=== PATIENT | female | born 1975 | race Caucasian/White ===

== ENCOUNTER 2019-11-15 08:39 | Day surgery (SDC) | payer BC ==
--- NOTE | 2019-11-15 08:42 | RAD REPORT ---
EXAM DESCRIPTION: RAD - Chest Pa And Lat (2 Views) - 11/15/2019 8:34 am CLINICAL HISTORY: PRE OP Chest pain. COMPARISON: No comparisons FINDINGS: The lungs are clear. The heart is upper limit of normal in size. No displaced fractures. IMPRESSION: No acute or concerning finding suspected.
[2019-11-15 08:52] LABS: Absolute Lymphocytes (CBC) 1.8 K/uL (0.7-4.9); Lymphocytes % 41.6 % (15.3-44.8); MPV 8.8 fL (7.6-11.3); RBC Red Blood Cell Count 4.82 M/uL (3.86-4.86)
[2019-11-15 09:04] LABS: ALT/SGPT 61 U/L (12-78); AST/SGOT 29 U/L (15-37); Albumin 3.8 g/dL (3.4-5.0); Alkaline Phosphatase 93 U/L (45-117); Amylase 38 U/L (25-115); BUN Blood Urea Nitrogen 13 mg/dL (7-18); Bicarbonate 30 mmol/L (21-32); Bilirubin Direct 0.1 mg/dL (0-0.2); Bilirubin Total 0.5 mg/dL (0.2-1.0); Glucose Level 100 mg/dL (74-106); Lipase 110 U/L (73-393); Potassium 4.6 mmol/L (3.5-5.1); Protein, Total 7.3 g/dL (6.4-8.2); Sodium Level 143 mmol/L (136-145)
[2019-11-15] MEDS ORDERED: Ringers Lactate 1,000 ML IV ONE (09:13)
[2019-11-15] MEDS ORDERED: KETOROLAC 30 MG/ML INJ ONE (11:29)
[2019-11-15] MEDS ORDERED: FENTANYL CITR 100 MCG/2 ML ONE (11:29)
[2019-11-15] MEDS ORDERED: propofoL 200 MG/20 ML VIAL IV ONE (11:29)
[2019-11-15] MEDS ORDERED: dexAMETHasone 10 MG/ML VIAL ONE (11:29)
[2019-11-15] MEDS ORDERED: MIDAZOLAM HCL 2 MG/2 ML INJ ONE (11:29)
[2019-11-15] MEDS ORDERED: LIDOCAINE 2% MPF 5 ML VIAL ONE (11:29)
[2019-11-15] MEDS ORDERED: ONDANSETRON 4 MG/2 ML VIAL ONE (11:30)
[2019-11-15] MEDS ORDERED: ROCURONIUM 50 MG/5 ML VIAL IV ONE (11:30)
[2019-11-15] MEDS ORDERED: CEFOXITIN/SWI 1gm 1 GM/10 ML SYR ONE (11:46)
--- NOTE | 2019-11-15 12:14 | P.BOP ---
Preoperative diagnosis: acute cholecystitis, symptomatic cholelithiasis Postoperative diagnosis: same Primary procedure: Laparoscopic cholecystectomy Operations Chief: FABY ROSA (IMAGING ASSISTANT) Estimated blood loss: <10cc Specimen: gb Findings: as above Anesthesia: General Complications: None Transferred to: Recovery Room Condition: Good
[2019-11-15] MEDS ORDERED: GLYCOPYRROLATE 0.2 MG/ML SYR ONE (12:19)
[2019-11-15] MEDS: Ringers Lactate 1,000 ML IV ONE ×2 (12:20→12:27)
[2019-11-15] MEDS ORDERED: NEOSTIGMINE 1 MG/ML -5 ML ONE (12:36)
[2019-11-15] MEDS: MEPERIDINE HCL 25 MG/ML SYR ONE ×2 (12:47→12:53)
[2019-11-15] MEDS ORDERED: PROMETHAZINE INJ 25 MG/ML AMP ONE (12:51)
[2019-11-15] MEDS: HYDROMORPHONE HCL 1 MG/ML INJ ONE ×2 (12:57→13:07)
[2019-11-15] MEDS ORDERED: CODEINE 30MG/APAP 300MG TAB ONE (14:20)
[2019-11-15 15:43] VITALS: TEMP 97.8; O2SAT 96
[2019-11-15 15:45] VITALS: BP 107/66
--- NOTE | 2019-11-15 20:58 | EKG ---
Test Date: 2019-11-15 Test Time: 08:13:40 Unemployment Benefits Claims Taker: ABBY MEASUREMENT RESULTS: Intervals: Rate: 57 CT: 138 QRSD: 80 QT: 436 QTc: 424 Dupont: P: 65 CT: 138 QRS: 43 T: 67 INTERPRETIVE STATEMENTS: Sinus bradycardia with sinus arrhythmia Otherwise normal ECG No previous ECG available for comparison Electronically Signed On 11-15-19 20:56:59 CDT by Yunior Collins
--- NOTE | 2019-11-15 22:43 | OP ---
Date of Procedure: 11/15/2019 Surgeon: Primo Shaikh MD Preoperative Diagnosis: Acute cholecystitis, symptomatic cholelithiasis. Postoperative Diagnosis: Acute cholecystitis symptomatic cholelithiasis. Procedure: Laparoscopic appendectomy. Anesthesia: General plus local. Findings: Cholecystitis, symptomatic cholelithiasis. Indications: This is a case of a 44-year-old patient comes to us with recurrent epigastric right upp er quadrant pain radiating to the back, associated with nausea. Diagnosed with acute cholecystitis, symptomatic cholelithiasis. Fully explained the benefits, alternatives, and risks of laparoscopic po ssible open cholecystectomy, which include, but not limited to infection, bleeding, damage to adjacen t structures, anesthesia complication, choledocholithiasis, bile leak pancreatitis, [place], and even deat h. She also understands this may not relieve any symptoms. She might need more than one surgical in tervention. She understood, signed a consent. Description Of Procedure: Patient brought to the operating room, placed in supine position. Anesthe joselito was done without complication. Abdominal area was prepped and draped in usual sterile fashion. Marcaine 0.5% was injected for local anesthetic followed by sharp incision of the skin in the infraum bilical region. The incision was carried down to fascia which was opened under direct vision. Perit oneum was encountered, opened under direct vision. Vicryl #1 placed inside the fascia. Deyanira troca r was carefully introduced. Pneumoperitoneum was obtained. We directed our attention to the right u pper quadrant. We noticed the gallbladder to be all distended, so we have to put an Endo needle unde r direct visualization, aspirated the gallbladder under direct visualization, and removed the needle under direct visualization. This allowed me to put a grasper in the fundus of the gallbladder, anoth er grasper in the infundibulum, retracted the gallbladder in the inferolateral fashion exposing the t riangle of Calot and obtaining critical view of safety. Cystic duct and cystic artery were clearly i solated free circumferentially and a connection between those and the gallbladder was clearly identif ied. I proceeded to ligate those by using at least 3 clips proximal, 1 clip distal, ligation in midd le. Same was done with the cystic artery. No bile leak. No bleeding. The gallbladder was removed from liver using Bovie cauterizer and removed from abdominal cavity using an EndoCatch through the um bilical incision. The area was inspected once again. No bile leak. No bleeding. At that moment, I proceeded to remove the trocars under direct vision, deflated the pneumoperitoneum. Closed the fasc ia with #1 Vicryl. This patient has previous tummy tuck, so the incision was done vertical, but the skin incision was done to follow the incisions of the previous tummy tuck. We closed the subcutaneou s tissue with 3-0 chromic and approximate the skin in a subcuticular fashion with Steri-Strips on top . Sponge count and instrument counts correct. Patient tolerated the procedure well. Patient sent t o Recovery in stable condition. Disposition: Home. Activity: As tolerated. No heavy lifting. Plan: Follow up in my office in 1 week. Call for appointment at [phone]. Keep area dry for 48 diana rs, then may shower. Keep Steri-Strip intact. Medications: 1.Tylenol No. 3 q.4 hours p.r.n. pain. 2.Bactrim DS p.o. b.i.d. PAVAN/JEFFY Voice ID: [id number] Report ID: [id number]
== END 2019-11-15 15:30 | disposition home or self-care (01) ==
LOC: OR 08:39
PROVIDERS: ATTEND Surgery
PROC: 0FT44ZZ Resection of Gallbladder, Percutaneous Endoscopic Approach (ICD-10-PCS; principal; 2019-11-15 11:15)
DX: K80.12 Calculus of gallbladder with acute and chronic cholecystitis without obstruction (principal); E66.9 Obesity, unspecified; Z68.34 Body mass index [BMI] 34.0-34.9, adult; Z11.59 Encounter for screening for other viral diseases; Z82.49 Family history of ischemic heart disease and other diseases of the circulatory system; Z80.1 Family history of malignant neoplasm of trachea, bronchus and lung; Z83.6 Family history of other diseases of the respiratory system
CPT/HCPCS: 47562; 93005; 85025; 80048; 36415; 82150; 80076; 88304; 83690; 71046; U0002; J2704; J2550; J2250; J3010; J1100; J2175; J1170; J2710; J7120 ×2; J2405

== ENCOUNTER 2022-09-26 03:59 | Emergency (ER) | payer BC ==
--- OUTSIDE RECORDS SUMMARY | 2022-09-26 04:02 | XMS REPORT | Continuity of Care Document ---
:1975 Author Organization [facility] t Address [address]. [address] [place] [address] Care Team Providers Name Role Phone Samm HARVEY, Sabrina Reyez Primary Care Physician [phone] MAN MENDOZA Attending Clinician Unavailable LAB53 Attending Clinician Unavailable ONLY, CK HEM/ONC NURSE Attending Clinician Unavailable VANIA ALVAREZ Attending Clinician Unavailable MD CORTES Attending Clinician Unavailable Zbigniew Klein Attending Clinician [phone] Godfrey Attending Clinician Unavailable LAB90 Attending Clinician Unavailable Man Mojica Attending Clinician Sabrina Quijano MD Attending Clinician [phone] Orlando Aguiar MD Attending Clinician ORLANDO AGUIAR Attending Clinician Unavailable Doctor Unassigned, [place] Attending Clinician Unavailable Godfrey Admitting Clinician Unavailable Payers Payer Name Policy Type Policy Number Effective Date Expiration Date S ourtremayne BCBS 2 [id number] 2018 00:00:00 [place] [id number] 2017 00:00:00 [place] Problems Condition Condition Condition Status Onset Resolution Last Treating Co mments Source Name Details Category Date Date Treatment Clinician Date Prediabete Prediabete Disease Active Romi nunez 10-10 Seybold 00:00: - 00 Externa l Encounter Encounter Disease Active Overview: Univers for for 09-24 ICD10 ity of routine routine 00:00: Diagnosis [place] gynecologi gynecologi 00 Term Me dical linh 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 Social History Social Habit Start Date Stop Date Quantity Comments Source Exposure to Not sure Anna robin SARS-CoV-2 (event) Alcohol intake 2022-04-03 2022-04-03 0 /d Anna Donaldson bold - 00:00:00 00:00:00 External Tobacco use and 2014-09-24 2014-09-24 Never used [facility] exposure 00:00:00 00:00:00 [facility] Branch Alcohol Comment 2014-09-24 2014-09-24 socially [facility] 00:00:00 00:00:00 [facility] Sex Ass[birth year] Anna Huntley ybold - 00:00:00 00:00:00 External Smoking Status Start Date Stop Date Source Never smoked tobacco Anna mcmullen - External Medications Ordered Filled Start Stop Current Ordering Indication Dosage Frequency Signature Comments Components Source Medication Medication Date Date Medication? Clinician (SIG) Name Name Cholecalcif 2021-05 Yes Vitamin D3 Anna sakina 1-18 Seybold (Vitamin 15:56: - D3) 1.25 MG 58 Externa (43547 UT) l oral Capsule methylPREDN 2021-05 Yes [id number] 1{melly} Take 1 melly Anna ISolone 4 1-18 by mouth Seybol d MG oral 00:00: See Admin - Tablet 00 Instructio Externa Therapy ns Use as l Pack directed Azithromyci 2021-05- No [id number] Take 2 Anna n 250 MG 1-18 11-24 tablets by Seyb old oral Tablet 00:00: 05:59 mouth on - 00 :00 day 1 then Externa 1 tablet l by mouth daily for 4 days thereafter . Cholecalcif 2021-05 Yes Vitamin D3 Anna sakina 0-18 Seybold (Vitamin 08:04: - D3) 1.25 MG 36 Externa (60063 UT) l oral Capsule OZEMPIC 2021-05 Yes [id number] .5mg Inject 0.5 Anna (0.25 or 0-18 mg into Seybold 0.5 00:00: the skin - mg/dose) 2 00 once a Externa mg/1.5 mL week l SQ Solution Pen-Injecto r Phentermine 2021-05 Yes [id number] 37.5mg Take 1 Anna HCl 37.5 MG 0-18 tablet Seybol d oral Tablet 00:00: (37.5 mg - 00 total) by Externa mouth l every morning (before breakfast) OZEMPIC 2021-05 Yes [id number] .5mg Inject 0.5 Anna (0.25 or 0-18 mg into Seybold 0.5 00:00: the skin - mg/dose) 2 00 once a Externa mg/1.5 mL week l SQ Solution Pen-Injecto r Phentermine 2021-05 Yes [id number] 37.5mg Take 1 Anna HCl 37.5 MG 0-18 tablet Seybol d oral Tablet 00:00: (37.5 mg - 00 total) by Externa mouth l every morning (before breakfast) Bupropion Yes [id number] 150mg Take 1 K elsey HCL XL 150 5-25 tablet Seybold MG OR TB24 00:00: (150 mg 00 total) by mouth daily Cyclobenzap 2020-05 Yes [id number] 10mg Q.[id number] Take 1 Anna rine HCl 10 0-27 [id number] tablet (10 Seybold MG oral 00:00: 3D mg total) Tablet 00 by mouth 3 times daily as needed for muscle spasms Etodolac 2020-05 Yes [id number] 400mg Take 1 K elsey 400 MG oral 0-27 tablet Seybol d Tablet 00:00: (400 mg 00 total) by mouth 2 times daily Cyclobenzap 2020-05 Yes [id number] 10mg Q.[id number] Take 1 Anna ortega HCl 10 0-27 [id number] tablet (10 Seybold MG oral 00:00: 3D mg total) Tablet 00 by mouth 3 times daily as needed for muscle spasms Etodolac 2020-05 Yes [id number] 400mg Take 1 K elsey 400 MG oral 0-27 tablet Seybol d Tablet 00:00: (400 mg 00 total) by mouth 2 times daily Vitamin D3 Vitamin D3 No Vitamin D3 [facility] Wellbutrin Wellbutrin No Wellbutrin [facility] bupropion bupropion No bupropion [facility] HCl XL 150 HCl XL 150 HCl XL 150 Medical mg 24 hr mg 24 hr mg 24 hr tablet, tablet, tablet, extended extended extended release release release TAKE ONE TAKE ONE TAKE ONE (1) (1) (1) TABLET(S) TABLET(S) TABLET(S) BY MOUTH BY MOUTH BY MOUTH DAILY. DAILY. DAILY. estradiol-n estradiol-n No 1 Q1D estradiol- [facility] orethindron orethindron [facility]r [facility] e acet 0.5 e acet 0.5 one acet mg-0.1 mg mg-0.1 mg 0.5 mg-0.1 tablet Take tablet Take mg tablet 1 tablet 1 tablet Take 1 every day every day tablet by oral by oral every day route. route. by oral route. Vitamin D3 Vitamin D3 No Vitamin D3 [facility] No known No Univers medications [facility] No known No Univers medications [facility] Immunizations Ordered Filled Immunization Date Status Comments [facility] e Immunization Name Name Covid-19 Vaccine 2020-09-09 Completed Anna alejo (Moderna), 00:00:00 Mrna-lnp, Rob Protein, Pf, 100 Mcg/0.5ml,IM Covid-19 Vaccine 2020-09-09 Completed Anna alejo Moderna (Spikevax), 00:00:00 Mrna-lnp, Rob Protein, Pf Covid-19 Vaccine 2020-09-09 Completed Anna alejo - Moderna (Spikevax), 00:00:00 Exter nal Mrna-lnp, Rob Protein, Pf Covid-19 Vaccine 2020-09-09 Completed Anna alejo - Moderna (Spikevax), 00:00:00 Exter nal Mrna-lnp, Rob Protein, Pf Tdap- (Boostrix, 2018-12-27 Completed Anna alejo Adacel) 00:00:00 Tdap- (Boostrix, 2018-12-27 Completed Anna alejo - Adacel) 00:00:00 External Tdap- (Boostrix, 2018-12-27 Completed Anna alejo - Adacel) 00:00:00 External Td,absorbed PF 2007-05-17 Completed Anna bermudez KSC,Admin,unspecifi 00:00:00 ed Td,absorbed PF 2007-05-17 Completed Anna PUGHC,Admin,unspecifi 00:00:00 ed Td,absorbed PF 2007-05-17 Completed Anna bermudez - KSC,Admin,unspecifi 00:00:00 Exter nal ed Td,absorbed 2007-05-17 Completed Anna bermudez - KSC,Admin,unspecifi 00:00:00 Exter nal ed Td 2007-05-17 Completed [facility] 00:00:00 [facility] Td 2007-05-17 Completed [facility] 00:00:00 [facility] Vital Signs Vital Name Observation Time Observation Value Comments Source Systolic blood 2022-04-03 21:53:00 102 mm[Hg] Anna Mcneill - pressure External Diastolic blood 2022-04-03 21:53:00 62 mm[Hg] Rosa Mcneill - pressure External Heart rate 2022-04-03 21:53:00 89 /min Anna alejo - External Body temperature 2022-04-03 21:53:00 35.83 Kaye Brittany Mcneill - External Respiratory rate 2022-04-03 21:53:00 14 /min Brittany Mcneill - External Body height 2022-04-03 21:53:00 175.3 cm Anna alejo - External Body weight 2022-04-03 21:53:00 98.431 kg Anna alejo - External BMI 2022-04-03 21:53:00 32.05 kg/m2 Anna alejo - External BP Diastolic 2021-12-31 00:00:00 72 mm[Hg] [facility] Height 2021-12-31 00:00:00 69 [in_i] [facility] BMI (Body Mass Index) 2021-12-31 00:00:00 33.8 kg/m2 [facility] BP Systolic 2021-12-31 00:00:00 116 mm[Hg] [facility] Body Weight 2021-12-31 00:00:00 229 [lb_av] [facility] BP Diastolic 2021-11-05 00:00:00 83 mm[Hg] [facility] Height 2021-11-05 00:00:00 69 [in_i] [facility] BMI (Body Mass Index) 2021-11-05 00:00:00 32.6 kg/m2 [facility] BP Systolic 2021-11-05 00:00:00 126 mm[Hg] [facility] Body Weight 2021-11-05 00:00:00 221 [lb_av] Charlie Olsen edical Systolic blood 2021-10-08 14:09:00 113 mm[Hg] Anna Seybold pressure Diastolic blood 2021-10-08 14:09:00 83 mm[Hg] Kelse y Seybold pressure Heart rate 2021-10-08 14:09:00 65 /min Annaradha alejo Body temperature 2021-10-08 14:09:00 36.44 Kaye Brittany ey Seybold Respiratory rate 2021-10-08 14:09:00 14 /min Brittany ey Seybold Body height 2021-10-08 14:09:00 175.3 cm Annaradha smithbold Body weight 2021-10-08 14:09:00 103.874 kg Annaradha smithbold BMI 2021-10-08 14:09:00 33.82 kg/m2 Annaradha smithboant Oxygen saturation in 2021-10-08 14:09:00 99 /min Anna Mcneill Arterial blood by Pulse oximetry Systolic blood 2021-03-12 18:04:00 119 mm[Hg] Anna Seybold pressure Diastolic blood 2021-03-12 18:04:00 80 mm[Hg] Kelse y Seybold pressure Heart rate 2021-03-12 18:04:00 68 /min Anna alejo Body temperature 2021-03-12 18:04:00 36.56 Kaye Brittany Mcneill Respiratory rate 2021-03-12 18:04:00 14 /min Brittany Mcneill Body height 2021-03-12 18:04:00 175.3 cm Anna alejo Body weight 2021-03-12 18:04:00 102.967 kg Anna alejo BMI 2021-03-12 18:04:00 33.52 kg/m2 Anna alejo Procedures Procedure Date / Time Performing Clinician Source Performed MAMMO, screening, 2021-12-31 00:00:00 [facility] bilateral US ABDOMEN COMPLETE 2020-09-11 14:36:27 Orlando Aguiar [facility] ASSIGNMENT OF BENEFITS 2020-09-11 13:57:19 Doctor Unassigned, Un [facility] [facility] Cholecystectomy 2019-05-17 00:00:00 [facility] (Gallbladder) Inguinal Hernia 2007-05-17 00:00:00 [facility] Orthopedic - Arthroscopic 2004-05-17 00:00:00 [facility] Abdominoplasty 2004-05-17 00:00:00 [facility] Plan of Care Planned Activity Planned Date Details Comments Source Diagnostic Test Pending 2021-12-31 [place] IgE Ab [facility] 00:00:00 [Units/volume] in Serum [code = 6195-2] Future Appointment 2022-12-31 Anne Arndt [facility] 00:00:00 [place] [address] Encounters Start End Encounter Admission Attending Care Care Encounter Source Date/Time Date/Time Type Type Clinicians Facility Department ID 2022-04-13 Outpatient [facility] [id number] Common 08:06:01 [facility] 2022-09-10 2022-09-10 Outpatient ANNA MENDOZA [id number] Anna 00:00:00 00:00:00 MAN robin 2022-08-07 2022-08-07 Outpatient ANNA MENDOZA [id number] Anna 00:00:00 00:00:00 MAN Seybol d 2022-06-08 2022-06-08 Outpatient KELLY ANNA BAUM [id number] Anna 00:00:00 00:00:00 MAN Seybol d 2022-05-02 2022-05-02 Outpatient KELLY ANNA BAUM [id number] Anna 00:00:00 00:00:00 MAN Seybol d 2022-04-14 2022-04-14 Outpatient LAB53 ANNA BAUM [id number] Anna 09:30:00 09:30:00 Seybol d 2022-04-14 2022-04-14 Outpatient ONLY, CK ANNA BAUM [id number] Anna 09:00:00 09:00:00 Seybol d 2022-04-14 2022-04-14 Outpatient LAB53 ANNA BAUM [id number] Anna 08:35:00 08:35:00 Seybol d 2022-04-03 2022-04-03 Outpatient KELLY, ANNA BAUM [id number] Anna 16:30:00 16:30:00 MAN Seybol d 2022-04-03 2022-04-03 Outpatient ANNA MENDOZA [id number] Anna 08:00:00 08:00:00 MAN Seybol d 2022-03-25 2022-03-25 Outpatient ANNA ALVAREZ [id number] Anna 15:30:00 15:30:00 KUBRAT Seybol d 2022-03-23 2022-03-23 Outpatient MANJINDER BAUM [id number] Anna 00:00:00 00:00:00 MD DEV Seybol d 2022-03-23 2022-03-23 Outpatient MANJINDER BAUM [id number] Anna 00:00:00 00:00:00 MD DVE Seybol d 2022-03-03 2022-03-03 Outpatient ANNA MENDOZA [id number] Anna 08:00:00 08:00:00 MAN Seybol d 2022-02-02 2022-02-02 Outpatient ANNA MENDOZA [id number] Anna 15:00:00 15:00:00 MAN Seybol d 2021-12-31 2021-12-31 Outpatient Ernie, PRIV PRIV [id number] 00:00:00 00:00:00 Zbigniew [id number] 2021-12-31 2021-12-31 Zbigniew [facility] 00:[facility]:00 [facility] RENE Klein MD: [address], [place] [address] , Ph. 2021-12-25 2021-12-25 Outpatient GC_SWHAOMC_ PRIV PRIV [id number] [facility] 00:00:00 00:00:00 Rafat [id number] Medic al 2021-11-12 2021-11-12 Outpatient GC_SWHAOMC_ PRIV PRIV [id number] [facility] 12:07:00 12:07:00 Rafat [id number] Medic al 2021-11-06 2021-11-06 Outpatient GC_SWHAOMC_ PRIV PRIV [id number] [facility] 10:36:00 10:36:00 Rafat [id number] Medic al 2021-11-05 2021-11-05 Outpatient GC_SWHAOMC_ PRIV PRIV [id number] [facility] 10:04:00 10:04:00 Rafat [id number] Medic al 2021-11-05 2021-11-05 Outpatient ANNA MENDOZA [id number] Anna 00:00:00 00:00:00 MAN Seybol d 2021-11-05 2021-11-05 Outpatient Ernie, PRIV PRIV [id number] 00:00:00 00:00:00 Zbigniew [id number] 2021-11-05 2021-11-05 Zbigniew [facility] 00:00:00 00:00:00 [facility] RENE Collado MD: [address], [place] [address] , Ph. 2021-11-04 2021-11-04 Outpatient GC_SWHAOMC_ PRIV PRIV [id number] [facility] 11:23:00 11:23:00 Rafat [id number] Medic al 2021-10-27 2021-10-27 Outpatient GC_SWHAOMC_ PRIV PRIV [id number] [facility] 10:03:00 10:03:00 Rafat [id number] Medic al 2021-10-10 2021-10-10 Outpatient ANNA MENDOZA [id number] Anna 00:00:00 00:00:00 MAN Seybol d 2021-10-08 2021-10-08 Outpatient LAB90 ANNA BAUM [id number] Anna 09:45:00 09:45:00 Seybol d 2021-10-08 2021-10-08 Office Aman Mendoza [id number] Anna 09:00:00 09:30:00 Visit Man Fidencio [id number] Se lia [id number] 2021-03-12 2021-03-12 Office Aman Quijano [id number] Anna 12:57:35 13:27:35 Visit Sabrina Fidencio [id number] Se chilangoold Somogyi [id number] 2020-09-11 2020-09-11 [facility] [id number] Univers 08:58:01 23:59:00 Encounter Orlando [id number] [id number] [facility] [id number] [place] [id number] Branch 2020-09-11 2020-09-11 [facility] [id number] Univers 00:00:00 00:00:00 ORLANDO carrasco [facility] 2020-09-11 2020-09-11 Orders Doctor VENTURA [id number] Univers 00:00:00 00:00:00 Only Unassigned, PETRONA [id number] ity of [place] [facility] [id number] Hugh as [id number] [facility] 009 Branch Results Test Description Test Time Test Comments Results Result [facility] e Comments US ABDOMEN 2020-08-16 HISTORY: [facility] 8 Hepatomegaly with [place] [facility]ical 14:39:33 NOS steatosis. Branch TECHNIQUE: Upper abdominal organs were evaluated in multiple planes withthe patient in multiple different positions, without and with colorimaging. FINDINGS: Liver is enlarged, 20.1 cm, spleen is 11.6 x 4.2 cm, right kidneyis 11.6 x 4.1 x 4.8 cm and left kidney is 10.3 x 5.0 x 4.9 cm in size. Milddiffuse increased echotexture of the liver parenchyma noted without anyfocal liver lesions visualized. Cortex of both kidneys range between 11 mmand 15 mm. No hydronephrosis, free fluid in the upper abdomen or aorticaneurysm detected. Visualized portions of the pancreas appear normal.Hepatic and portal venous system appear patent, with hepatopetal portalflow noted. Gallbladder has been removed. Common hepatic duct is 4.5 mm. CONCLUSIONS:1. Hepatomegaly with diffuse hepatic steatosis.2. S/P cholecystectomy. [facility], Radiant Results Inft User - 09/11/2020 9:40 AM CDTHISTORY: Hepatomegaly with NOS steatosis.TECHNIQUE : Upper abdominal organs were evaluated in multiple planes withthe patient in multiple different positions, without and with colorimaging.FINDIN GS: Liver is enlarged, 20.1 cm, spleen is 11.6 x 4.2 cm, right kidneyis 11.6 x 4.1 x 4.8 cm and left kidney is 10.3 x 5.0 x 4.9 cm in size. Milddiffuse increased echotexture of the liver parenchyma noted without anyfocal liver lesions visualized. Cortex of both kidneys range between 11 mmand 15 mm. No hydronephrosis, free fluid in the upper abdomen or aorticaneurysm detected. Visualized portions of the pancreas appear normal.Hepatic and portal venous system appear patent, with hepatopetal portalflow noted.Gallbladder has been removed. Common hepatic duct is 4.5 mm.CONCLUSIONS:1. Hepatomegaly with diffuse hepatic steatosis.2. S/P cholecystectomy.
[2022-09-26 04:55] LABS: Specific Gravity 1.011 (1.005-1.030); Urine Bacteria <20 /HPF (<20); Urine Bilirubin NEGATIVE (Negative); Urine Blood 3+ (Negative); Urine Clarity Turbid (Clear); Urine Color Light-Yellow (Yellow); Urine Glucose NEGATIVE (Negative); Urine Mucus Slight /HPF (None Seen); Urine Protein NEGATIVE (Negative); Urine RBC 21-50 /HPF (None Seen); Urine Urobilinogen Normal (Normal)
--- NOTE | 2022-09-26 05:26 | ER ---
Nurse's Notes [facility] Name: Adriana Bunn Age: 47 yrs Sex: Female : 1975 Arrival Date: 09/26/2022 Time: 03:59 Bed 13 Private MD: Diagnosis: UTI/ Urinary tract infection, site not specified;Acute cystitis Presentation: 09/26 04:11 Chief complaint: Patient states: burning with urination, urgency, frequency, with pf1 suprapubic pain of 7,onset 1 hour ago. Coronavirus screen: Vaccine status: Patient reports receiving the 2nd dose of the covid vaccine. Moderna Client denies travel out of the [place] in the last 14 days. At this time, the client does not indicate any symptoms associated with coronavirus-19. Ebola Screen: Patient negative for fever greater than or equal to 101.5 degrees Fahrenheit, and additional compatible Ebola Virus Disease symptoms. Initial Sepsis Screen: Does the patient meet any 2 criteria? No. Patient's initial sepsis screen is negative. Does the patient have a suspected source of infection? No. Patient's initial sepsis screen is negative. Risk Assessment: Do you want to hurt yourself or someone else? Patient reports no desire to harm self or others. Onset of symptoms was September 26, 2022. 04:11 Method Of Arrival: Ambulatory pf1 04:11 Acuity: NAVYA 4 pf1 Triage Assessment: 04:21 General: Appears in no apparent distress. uncomfortable, Behavior is calm, cooperative, vc1 appropriate for age. Pain: Complains of pain in meatus and suprapubic area Pain does not radiate. EENT: No deficits noted. No signs and/or symptoms were reported regarding the EENT system. Neuro: Level of Consciousness is awake, alert, obeys commands, Oriented to person, place, time, situation, Appropriate for age. Cardiovascular: No deficits noted. Respiratory: Airway is patent Respiratory effort is even, unlabored, Respiratory pattern is regular, symmetrical. GI: No deficits noted. No signs and/or symptoms were reported involving the gastrointestinal system. : Reports burning with urination, pain in suprapubic area with urination, urgency, urinary frequency. Derm: No deficits noted. No signs and/or symptoms reported regarding the dermatologic system. Musculoskeletal: No deficits noted. No signs and/or symptoms reported regarding the musculoskeletal system. 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 It has been more than one year since last vaccine. - Family history:: not pertinent. - Social history:: Smoking status: Patient denies any tobacco usage or history of. Patient uses alcohol, but reports only rare drinking. Patient/guardian denies using street drugs. - Hospitalizations: : No recent hospitalization is reported. Screenin:18 [facility] ED Fall Risk Assessment (Adult) History of falling in the last 3 months, pf1 including since admission No falls in past 3 months (0 pts) Confusion or Disorientation No (0 pts) Intoxicated or Sedated No (0 pts) Impaired Gait No (0 pts) Mobility Assist Device Used No (0 pt) Altered Elimination No (0 pt) Score/Fall Risk Level 0 - 2 = Low Risk Oriented to surroundings, Maintained a safe environment, Educated pt \T\ family on fall prevention, incl call for assistance when getting out of bed, Assessed \T\ reinforced patient's understanding of fall precautions, Provided non-skid footwear, Hourly rounding (assess needs \T\ fall precautionary measures) done, Used ambulatory aids as needed (educated on \T\ assisted with), Used gait belt as appropriate. Abuse screen: Denies threats or abuse. Nutritional screening: No deficits noted. Tuberculosis screening: No symptoms or risk factors identified. Assessment: 05:51 Reassessment: No changes from previously documented assessment. Patient and/or family vc1 updated on plan of care and expected duration. Pain level reassessed. Patient is alert, oriented x 3, equal unlabored respirations, skin warm/dry/pink. Vital Signs: 04:11 BP 114 / 74; Pulse 79; Resp 18; Temp 97.3; Pulse Ox 100% on R/A; Weight 82.55 kg; pf1 Height 5 ft. 9 in. ; Pain 7/10; 04:11 Body Mass Index 26.88 (82.55 kg, 175.26 cm) pf1 04:11 Pain Scale: Adult pf1 ED Course: 04:02 Patient arrived in ED. [id number] 04:06 Edmund Banks MD is Attending Physician. rn 04:13 Triage completed. pf1 04:19 Patient has correct armband on for positive identification. Bed in low position. Call pf1 light in reach. 04:19 Urinalysis w/ reflexes Sent. pf1 04:20 Teodora Mcclain, RN is Primary Nurse. vc1 04:22 Arm band placed on right wrist. vc1 05:51 No provider procedures requiring assistance completed. Patient did not have IV access vc1 during this emergency room visit. Administered Medications: 05:35 Drug: Rocephin (cefTRIAXone) IM 1 grams Route: IM; Site: right ventrogluteal; vc1 Medication: 04:22 VIS not applicable for this client. vc1 Outcome: 05:25 Discharge ordered by . rn 05:51 Discharged to home ambulatory, with significant other. vc1 05:51 Condition: good 05:51 Discharge instructions given to patient, Instructed on discharge instructions, follow up and referral plans. medication usage, Demonstrated understanding of instructions, follow-up care, medications, Prescriptions given X 2. 05:51 Patient left the ED. vc1 Signatures: Edmund Banks MD MD rn Jeffries, Jennifer j6 Teodora Mcclain RN RN vc1 Mila medina RN RN pf1
--- NOTE | 2022-09-26 05:26 | EDPHYS ---
Physician Documentation [facility] Name: Adriana Bunn Age: 47 yrs Sex: Female : 1975 Arrival Date: 09/26/2022 Time: 03:59 Bed 13 Private MD: ED Physician Edmund Banks HPI: 09/26 04:12 This 47 yrs old Female presents to ER via Unassigned with complaints of Pelvic Pain, rn Pain With Urination. 04:12 The patient presents with urinary symptoms, dysuria, frequency, urgency. Onset: The rn symptoms/episode began/occurred this morning. Modifying factors: The symptoms are alleviated by nothing, the symptoms are aggravated by urinating. Associated signs and symptoms: Pertinent positives: dysuria, Pertinent negatives: fever, hematuria, vaginal bleeding, vomiting. Severity of symptoms: At their worst the symptoms were moderate, in the emergency department the symptoms are unchanged. The patient has experienced a previous episode. The patient has not recently seen a physician. 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 It has been more than one year since last vaccine. - Family history:: not pertinent. - Social history:: Smoking status: Patient denies any tobacco usage or history of. Patient uses alcohol, but reports only rare drinking. Patient/guardian denies using street drugs. - Hospitalizations: : No recent hospitalization is reported. ROS: 04:12 Constitutional: Negative for fever, chills, and weight loss, Cardiovascular: Negative rn for chest pain, palpitations, and edema, Respiratory: Negative for shortness of breath, cough, wheezing, and pleuritic chest pain, Abdomen/GI: Negative for abdominal pain, nausea, vomiting, diarrhea, and constipation, Back: Negative for injury and pain, : + dysuria, + increased frequency or urgency MS/Extremity: Negative for injury and deformity, Skin: Negative for injury, rash, and discoloration, Neuro: Negative for headache, weakness, numbness, tingling, and seizure. Exam: 04:12 Constitutional: This is a well developed, well nourished patient who is awake, alert, rn and in no acute distress. Cardiovascular: Regular rate and rhythm. No pulse deficits. Abdomen/GI: soft, non-tender Back: No costovertebral tenderness. Vital Signs: 04:11 BP 114 / 74; Pulse 79; Resp 18; Temp 97.3; Pulse Ox 100% on R/A; Weight 82.55 kg; pf1 Height 5 ft. 9 in. ; Pain 7/10; 04:11 Body Mass Index 26.88 (82.55 kg, 175.26 cm) pf1 04:11 Pain Scale: Adult pf1 MDM: 04:06 Patient medically screened. rn 05:25 Differential diagnosis: urinary tract infection, cystitis. Data reviewed: vital signs, rn nurses notes, lab test result(s), and as a result, I will discharge patient. Counseling: I had a detailed discussion with the patient and/or guardian regarding: the historical points, exam findings, and any diagnostic results supporting the discharge/admit diagnosis, lab results, the need for outpatient follow up, to return to the emergency department if symptoms worsen or persist or if there are any questions or concerns that arise at home. Special discussion: I discussed with the patient/guardian in detail that at this point there is no indication for admission to the hospital. It is understood, however, that if the symptoms persist or worsen the patient needs to return immediately for re-evaluation. Based on the history and exam findings, there is no indication for further emergent testing or inpatient evaluation. I discussed with the patient/guardian the need to see the primary care provider for further evaluation of the symptoms. 09/26 04:11 Order name: Urinalysis w/ reflexes; Complete Time: 05:20 rn 09/26 05:04 Order name: Urine Culture EDMS Administered Medications: 05:35 Drug: Rocephin (cefTRIAXone) IM 1 grams Route: IM; Site: right ventrogluteal; vc1 Disposition Summary: 09/26/22 05:25 Discharge Ordered Location: Home rn Problem: new rn Symptoms: have improved rn Condition: Stable rn Diagnosis - UTI/ Urinary tract infection, site not specified rn - Acute cystitis rn Followup: rn - With: Private Physician - When: As needed - Reason: Recheck today's complaints, Re-evaluation by your physician Discharge Instructions: - Discharge Summary Sheet rn - Urinary Tract Infection, Adult rn Forms: - Medication Reconciliation Form rn - Thank You Letter rn - Antibiotic project management intern - Prescription Opioid Use rn Prescriptions: - Pyridium 200 mg Oral Tablet - take 1 tablet by ORAL route every 8 hours for 3 days; 9 tablet; Refills: 0, rn Product Selection Permitted - cefpodoxime 100 mg Oral Tablet - take 2 tablets by ORAL route every 12 hours for 10 days take with food; 40 rn tablet; Refills: 0, Product Selection Permitted Signatures: Dispatcher [employer] EDEdmund Sales MD MD rn Calcote, Vanessa, RN RN vc1 Mila medina, RN RN pf1
[2022-09-26] MEDS ORDERED: LIDOCAINE 1% MPF 2 ML AMPULE ONE (05:35)
[2022-09-26] MEDS ORDERED: CEFTRIAXONE 1000 MG/VIAL ONE (05:35)
[2022-09-26 06:01] VITALS: BP 114/74; TEMP 97.3; O2SAT 100
== END 2022-09-26 05:51 | disposition home or self-care (01) ==
LOC: ER 03:59
DX: N30.00 Acute cystitis without hematuria (principal); R73.03 Prediabetes
CPT/HCPCS: 87088; 81001; 87086; 96372; 99284; J0696

== ENCOUNTER 2023-12-26 20:44 | Emergency (ER) | payer BC ==
[2023-12-26 22:02] LABS: Specific Gravity 1.005 (1.005-1.030); Sqamous Epithelial <5 /HPF (None Seen); Urine Bacteria None Seen /HPF (<20); Urine Bilirubin NEGATIVE (Negative); Urine Blood Negative (Negative); Urine Clarity Clear (Clear); Urine Color Colorless (Yellow); Urine Culture Reflex Order NOT NEEDED; Urine Glucose NEGATIVE (Negative); Urine Ketones NEGATIVE (Negative); Urine Microscopic Reflex YN ORDER UMIC; Urine Nitrite NEGATIVE (Negative); Urine Protein NEGATIVE (Negative); Urine RBC <5 /HPF (None Seen); Urine Urobilinogen Normal (Normal); Urine WBC <5 /HPF (<5)
--- NOTE | 2023-12-26 22:07 | EDPHYS ---
Physician Documentation [facility] Name: Adriana Bunn Age: 48 yrs Sex: Female : 1975 Arrival Date: 12/26/2023 Time: 20:44 Bed 18 Private MD: ED Physician Sal Figueroa HPI: 12/25 22:35 This 48 yrs old Female presents to ER via Ambulatory with complaints of vaginal problem.kb 22:35 Pt is a 48 year old female who presents for bulge in vagina that she felt this evening. kb states she lifts heavy objects at work and has noticed pressure in vaginal area and urge to urinate when lifting. Denies pain, urinary symptoms, fever. . 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 - Infectious Disease History:: Denies. - Social history:: Smoking status: Patient denies any tobacco usage or history of. ROS: 22:35 Constitutional: As per HPI kb Exam: 22:35 Constitutional: This is a well developed, well nourished patient who is awake, alert, kb and in no acute distress. Head/Face: Normocephalic, atraumatic. ENT: Moist Mucous membranes Cardiovascular: Regular rate Respiratory: Respirations even and unlabored. No increased work of breathing. Talking in full sentences Abdomen/GI: Soft, non-tender. No distention Back: No spinal tenderness. No costovertebral tenderness. Full range of motion. Skin: Warm, dry with normal turgor. Normal color. MS/ Extremity: Pulses equal, no cyanosis. Neurovascular intact. Full, normal range of motion. Neuro: Awake and alert, GCS 15, oriented to person, place, time, and situation. Moves all extremities. Normal gait. 22:37 : Pelvic Exam: External exam: is normal, kb Vital Signs: 20:50 BP 118 / 64; Pulse 73; Resp 17 S; Temp 98.1(O); Pulse Ox 100% on R/A; Weight 90.72 kg; ha1 Height 5 ft. 9 in. ; 22:21 BP 100 / 60; Pulse 68; Resp 18; Temp 98.4; Pulse Ox 98% on R/A; me1 20:50 Body Mass Index 29.53 (90.72 kg, 175.26 cm) ha1 MDM: 20:50 Patient medically screened. kb 22:36 Differential diagnosis: UTI, bartholin cyst, abscess, uterine prolapse. Data reviewed: kb vital signs, nurses notes. Test considered but Not performed: CT: ct abd considered but pt has no pain, tenderness, fever. Historians other than the Patient: Spouse/Significant Other: . Counseling: I had a detailed discussion with the patient and/or guardian regarding the historical points, exam findings, and any diagnostic results supporting the discharge/admit diagnosis, lab results, the need for outpatient follow up, an OB/Gyne specialist, to return to the emergency department if symptoms worsen or persist or if there are any questions or concerns that arise at home. 12/25 21:08 Order name: Urinalysis w/ reflexes; Complete Time: 22:05 kb Administered Medications: No medications were administered Disposition: 23:05 I was immediately available on-site in the Emergency Department for consultation in the ms3 care of the patient. Disposition Summary: 12/26/23 22:06 Discharge Ordered Notes: Location: Home kb Condition: Stable kb Diagnosis - Female genital prolapse, unspecified kb Followup: kb - With: Emergency Department - When: As needed - Reason: Worsening of condition Followup: kb - With: Private Physician - When: 2 - 3 days - Reason: Recheck today's complaints, Continuance of care, Re-evaluation by your physician Discharge Instructions: - Discharge Summary Sheet kb - Pelvic Organ Prolapse kb Forms: - Medication Reconciliation Form kb - Antibiotic Education kb - Prescription Opioid Use kb - Patient Portal Instructions kb - Leadership Thank You Letter kb Signatures: Dispatcher [employer] Vika Basilio, CECILLE WAGONER-Sal Beck DO DO ms3 Leesa Alex, RN RN ha1
--- NOTE | 2023-12-26 22:07 | ER ---
Nurse's Notes [facility] Name: Adriana Bunn Age: 48 yrs Sex: Female : 1975 Arrival Date: 12/26/2023 Time: 20:44 Bed 18 Private MD: Diagnosis: Female genital prolapse, unspecified Presentation: 12/25 20:50 Chief complaint: Patient states: I feel like something is hanging out of my vagina. I me1 am wondering if it is uterine prolapse. 20:50 Coronavirus screen: Vaccine status: Patient reports receiving the 2nd dose of the covid ha1 vaccine. Ebola Screen: No symptoms or risks identified at this time. Initial Sepsis Screen: Does the patient meet any 2 criteria? No. Patient's initial sepsis screen is negative. Does the patient have a suspected source of infection? No. Patient's initial sepsis screen is negative. Risk Assessment: Do you want to hurt yourself or someone else? Patient reports no desire to harm self or others. Onset of symptoms was December 26, 2023. 20:50 Method Of Arrival: Ambulatory ha1 20:50 Acuity: NAVYA 4 ha1 Triage Assessment: 20:50 General: Appears comfortable, Behavior is calm, cooperative. Pain: Denies pain. Neuro: ha1 Level of Consciousness is awake, alert, obeys commands, Oriented to person, place, time, situation. Cardiovascular: Capillary refill < 3 seconds Patient's skin is warm and dry. Respiratory: Airway is patent Respiratory effort is even, unlabored, Respiratory pattern is regular, symmetrical. 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 - Infectious Disease History:: Denies. - Social history:: Smoking status: Patient denies any tobacco usage or history of. Screenin:00 [facility] ED Fall Risk Assessment (Adult) History of falling in the last 3 months, me1 including since admission No falls in past 3 months (0 pts) Confusion or Disorientation No (0 pts) Intoxicated or Sedated No (0 pts) Impaired Gait No (0 pts) Mobility Assist Device Used No (0 pt) Altered Elimination No (0 pt) Score/Fall Risk Level 0 - 2 = Low Risk Maintained a safe environment, Provided non-skid footwear, Hourly rounding (assess needs \\T\\ fall precautionary measures) done. Abuse screen: Denies threats or abuse. Nutritional screening: No deficits noted. Tuberculosis screening: No symptoms or risk factors identified. Assessment: 21:00 General: Appears in no apparent distress. well groomed, well developed, well nourished, me1 Behavior is calm, cooperative, appropriate for age, Reports I feel like something is hanging out of my vagina. I am wondering if it is uterine prolapse. Pain: Denies pain. Neuro: Level of Consciousness is awake, alert, obeys commands, Oriented to person, place, time, situation, Appropriate for age. Cardiovascular: Patient's skin is warm and dry. Respiratory: Airway is patent Trachea midline Respiratory effort is even, unlabored, Respiratory pattern is regular, symmetrical. GI: No signs and/or symptoms were reported involving the gastrointestinal system. : Reports "I feel like something is hanging out of my vagina. I am wondering if it is uterine prolapse". EENT: No signs and/or symptoms were reported regarding the EENT system. Derm: Skin is intact, is healthy with good turgor, Skin is pink, warm \\T\\ dry. Musculoskeletal: No signs and/or symptoms reported regarding the musculoskeletal system. Vital Signs: 20:50 BP 118 / 64; Pulse 73; Resp 17 S; Temp 98.1(O); Pulse Ox 100% on R/A; Weight 90.72 kg; ha1 Height 5 ft. 9 in. ; 22:21 BP 100 / 60; Pulse 68; Resp 18; Temp 98.4; Pulse Ox 98% on R/A; me1 20:50 Body Mass Index 29.53 (90.72 kg, 175.26 cm) ha1 ED Course: 20:47 Patient arrived in ED. ra3 20:50 Vika Nicolas [facility]-C [facility]. kb 20:50 Sal Figueroa DO is Attending Physician. kb 21:00 Patient has correct armband on for positive identification. Bed in low position. Call me1 light in reach. Side rails up X 1. Provided Education on: POC. Verbalized understanding. . Client placed on continuous cardiac and pulse oximetry monitoring. NIBP monitoring applied. Pulse ox on. NIBP on. 21:00 Arm band placed on Patient placed in an exam room. me1 21:00 No provider procedures requiring assistance completed. Patient did not have IV access me1 during this emergency room visit. 21:10 Triage completed. ha1 21:57 Diana Nj, RN is Primary Nurse. me1 Administered Medications: No medications were administered Medication: 21:00 VIS not applicable for this client. me1 Outcome: 22:06 Discharge ordered by . bandar 22:21 Discharged to home ambulatory, with significant other, me1 22:21 Condition: stable 22:21 Discharge instructions given to patient, significant other, Instructed on discharge instructions, follow up and referral plans. Demonstrated understanding of instructions, follow-up care, 22:22 Patient left the ED. me1 Signatures: Vika Nicolas, PLASTIC BATTERY ASSEMBLER-C PLASTIC BATTERY ASSEMBLER-Leesa Bolton RN RN 1 Diana Nj, RN RN in1 Mae Seo ra3 Corrections: (The following items were deleted from the chart) 22:17 20:50 Chief complaint: Patient states: I feel like something is hanging out of my me1 vagina. I am wondering if it is uterine prolapse ha1
[2023-12-26 23:07] VITALS: BP 100/60; TEMP 98.4; O2SAT 98
== END 2023-12-26 22:22 | disposition home or self-care (01) ==
LOC: ER 20:44
DX: N81.9 Female genital prolapse, unspecified (principal)
CPT/HCPCS: 81001; 99283

== ENCOUNTER 2025-02-14 13:55 | Emergency (ER) | payer BC ==
--- OUTSIDE RECORDS SUMMARY | 2025-02-14 14:01 | XMS REPORT | Continuity of Care Document ---
Author Name Unknown Address [address] [facility] [address] [place] [address] [facility] Address [address] [facility] [address] [place] [address] Care Team Providers Care Nurse First Aid Name Role Phone Samm HARVEY, Sabrina Reyez Primary Care Physician BRIONNA GARG Attending Clinician Unavailable MAN MENDOZA Attending Clinician Unavailable CAITLYN MIRZA Attending Clinician Unavailab MONTRELL June Attending Clinician Unavailabl e LAB90 Attending Clinician Unavailable Antony Harrington Attending Clinician Unavailable RAJI JOHNS Attending Clinician Unavailable KASH ABEBE Attending Clinician Unavailable TITI WORRELL Attending Clinician Unavailab le LAB53 Attending Clinician Unavailable ONLY, CK HEM/ONC NURSE Attending Clinician Unava VANIA Padilla Attending Clinician Unavailab zan KOLB MD Attending Clinician Unavailab Zbigniew Hernandez Attending Clinician [phone] CORNELL_Gen[place] Attending Clinician UnavailMan Ortiz Attending Clinician [phone] Sabrina Quijano MD Attending Clinician [phone] Orlando Aguiar MD Attending Clinician [phone] ORLANDO AGUIAR Attending Clinician Unavailabl e Doctor Unassigned, [facility] Attending Clinician U Antony Lincoln Admitting Clinician Unavailable CORNELL_CALVIN_Ernie_[facility] Admitting Clinician Unavaila ble Payers Payer Name Policy Type Policy Number Effective Date Expirati on Date Source BCBS 2 [id number] 2023 00:[place] [id number] 2017 00:00:00 Problems Condition Name Condition Details Condition Category Status Onset Date Resolution Date Last Treatment Date Treating Clinician Comments Source Genuine stress incontinen ce Genuine Stress Incontinen ce Problem Active 2-18 00:00: 00 [facility] Candidal vulvovagin itis Candidal Vulvovagin itis Problem Active 2023-05 1-11 00:00: 00 [facility] Menopausal symptom Menopausal Symptom Problem Active 2023-05 0-30 00:00: 00 [facility] Female stress incontinen ce Female Stress Incontinen ce Problem Active 2023-05 0-23 00:00: 00 [facility] Fatigue Fatigue Problem Active 2023-05 0-22 00:00: 00 [facility] Increased frequency of urination Increased Frequency of Urination Problem Active 2023-05 0-22 00:00: 00 [facility] Vitamin D deficiency Vitamin D Deficiency Problem Active 2023-05 0-22 00:00: 00 [facility] Anxiety disorder Anxiety Disorder Problem Active 2023-05 0-22 00:00: 00 [facility] Depressive disorder Depressive Disorder Problem Active 2023-05 0-22 00:00: 00 [facility] Insomnia Insomnia Problem Active 2023-05 0-22 00:00: 00 [facility] Menopausal syndrome Menopausal Syndrome Problem Active 2023-05 0-22 00:00: 00 [facility] Atrophic vaginitis Atrophic Vaginitis Problem Active 2023-05 0-22 00:00: 00 [facility] Joint pain Joint Pain Problem Active 2023-05 0-22 00:00: 00 [facility] Urgent desire to urinate Urgent Desire to Urinate Problem Active 2023-05 0-14 00:00: 00 [facility] Chronic constipati on Chronic Constipati on Problem Active 9-04 00:00: 00 [facility] Gallstone Gallstone Problem Active 9-04 00:00: 00 [facility] Posterior vaginal wall prolapse Posterior Vaginal Wall Prolapse Problem Active 9-04 00:00: 00 [facility] Incomplete uterovagin al prolapse Incomplete Uterovagin al Prolapse Problem Active 9-04 00:00: 00 [facility] Atrophy of vagina Atrophy of Vagina Problem Active 9-04 00:00: 00 [facility] Reduced libido Reduced Libido Problem Active 9-04 00:00: 00 [facility] Secondary amenorrhea Secondary Amenorrhea Problem Active 9-04 00:00: 00 [facility] Prediabete s Prediabete s Disease Active 10-10 00:00: 00 Anna Mcneill - Celina murillo Encounter for routine gynecologi linh examinatio n Encounter for routine gynecologi linh examinatio n Disease Active 09-24 00:00: 00 Overview: ICD10 Diagnosis Term [employer] [facility] Obesity Obesity Disease Active 09-24 00:00: 00 Overview: ICD10 Diagnosis Term [employer] [facility] Irregular menstrual cycle Irregular menstrual cycle Disease Active 09-24 00:00: 00 [facility] Nondisplac ed comminuted fracture of left patella, initial encounter for closed fracture Nondisplac ed comminuted fracture of left patella, initial encounter for closed fracture [facility]44 Kenneth Berger No known active problems No known active problems Disease Anna Mcneill Unilateral primary osteoarthr itis, left knee Unilateral primary osteoarthr itis, left knee 10/28/2023 [facility] Problem 2023-10-28 07:02:44 Kenneth Berger Exposure to other specified factors, initial encounter Exposure to other specified factors, initial encounter 10/28/2023 [facility] Problem 2023-10-28 07:02:44 Kenneth Berger Allergies, Adverse Reactions, Alerts Allergy Name Allergy Type Status Severity Reaction(s) Onset Date Inactive Date Treating Clinician Comments Source No Known Allergie s DA Active U 2023-05 00:00: 00 [facility] NO KNOWN ALLERGIE S Drug Class Active [facility] Social History Social Habit Start Date Stop Date Quantity Comments Source Gender identity 2023-05-20 09:29:19 Identifies as female gender (finding) Anna Weisskemi - External Sexual orientation 2023-05-20 09:29:19 Heterosexual (finding) Anna Mcneill - External ASSERTION Not Anna Mcneill - External Exposure to SARS-CoV-2 (event) Not sure Anna Huntley chilangokemi Alcoholic beverage intake 2024-12-18 00:00:00 2024-12-18 00:00:00 Current drinker of alcohol (finding) Anna Mcneill - External Alcohol Comment 2023-12-28 00:00:00 2023-12-28 00:00:00 social Anna Mcneill - External History of Social function 2023-12-28 00:00:00 2023-12-28 00:00:00 Anna Mcneill - External Alcohol intake 2022-12-31 00:00:00 2022-12-31 00:00:00 0 /d Anna Mcneill - External Sex 2015-05-21 06:56:01 2015-05-21 06:56:01 Female (finding) Anna Weisskemi - External Tobacco use and exposure 2014-09-24 00:00:00 2014-09-24 00:00:00 Never used [facility] Sex assigned at 1975 00:00:00 1975 00:00:00 F Anna Weisskemi - External Smoking Status Start Date Stop Date Source Never smoked tobacco Anna Mcneill - External Medications Ordered Medication Name Filled Medication Name Start Date Stop Date Current Medication? Ordering Clinician Indication Dosage Frequency Signature (SIG) Comments Components Source methylPREDN ISolone Acetate 40 mg injection methylPREDN ISolone Acetate 40 mg injection 12-18 11:33: 52 Yes [id number] 9109 40mg Anna murillo methylPREDN ISolone Acetate 40 mg injection methylPREDN ISolone Acetate 40 mg injection 12-18 11:33: 52 Yes [id number] 9109 40mg 40 mg, Physician Administer ed, ONCE, 1 dose, On Wed12/18/24 at 1000 Anna murillo Meloxicam 15 MG oral Tablet Meloxicam 15 MG oral Tablet 8-04 00:00: 00 Yes 15mg QD Take 1 tablet (15 mg total) by mouth daily Take with Meals, STOP IF UPSET STOMACH. Anna murillo Nirmatrelvi r & Ritonavir STANDARD (30) (300/100) Therapy Pack 7-16 00:00: 00 12-05 04:59 :00 Yes [id number] Take two 150 mg nirmatrelv ir (pink) tablets with one 100 mg ritonavir (white) tablet by mouth two times daily for 5 days. Anna murillo methylPREDN ISolone (Medrol) 4 MG oral Tablet Therapy Pack 6-10 00:00: 00 10-31 04:59 :00 No [id number] 1{melly} Take 1 melly by mouth See Admin Instructio ns for 6 days Use as directed.. Anna murillo Tirzepatide -Weight Management (Zepbound) 5 MG/0.5ML subcutaneou s Solution Auto-inject or Tirzepatide -Weight Management (Zepbound) 5 MG/0.5ML subcutaneou s Solution Auto-inject or 6-06 00:00: 00 Yes [id number] 5mg Q1W Inject 0.5 mL (5 mg total) into the skin once a week. Anna murillo Tirzepatide -Weight Management (Zepbound) 5 MG/0.5ML subcutaneou s Solution Auto-inject or 4-10 00:00: 00 10-20 00:00 :00 No [id number] 5mg Q1W Inject 0.5 mL (5 mg total) into the skin once a week. Anna murillo Cholecalcif sakina (Vitamin D-3) 25 MCG (1000 UT) oral Capsule 07-13 14:42: 19 07-13 00:00 :00 No Anna murillo Tirzepatide -Weight Management (Zepbound) 5 MG/0.5ML subcutaneou s Solution Auto-inject or 07-13 00:00: 00 08-24 00:00 :00 No [id number] 5mg Q1W Inject 0.5 mL (5 mg total) into the skin once a week. Anna murillo Estradiol 0.1 MG/24HR transdermal PATCH BIWEEKLY Estradiol 0.1 MG/24HR transdermal PATCH BIWEEKLY - 00:00: 00 Yes Anna murillo Tirzepatide -Weight Management (Zepbound) 2.5 MG/0.5ML subcutaneou s Solution Auto-inject or 05-24 00:00: 00 07-13 00:00 :00 No [id number] 2.5mg Q1W Inject 0.5 mL (2.5 mg total) into the skin once a week. Anna murillo Cholecalcif sakina (Vitamin D-3) 25 MCG (1000 UT) oral Capsule 05-19 08:00: 26 Yes Anna murillo Tirzepatide -Weight Management (Zepbound) 2.5 MG/0.5ML subcutaneou s Solution Auto-inject or - 00:00: 00 05-19 00:00 :00 No [id number] 2.5mg Q1W Inject 0.5 mL (2.5 mg total) into the skin once a week. Anna murillo Estradiol 0.075 MG/24HR transdermal PATCH BIWEEKLY 2023-05 00:00: 00 07-13 00:00 :00 No [id number] 9107 Anna murillo Cholecalcif sakina (Vitamin D3) 1.25 MG (74642 UT) oral Capsule 2023-05 00:00: 00 05-19 00:00 :00 No 1{capsu le} Q1W Take 1 capsule by mouth once a week. Anna murillo ESTRADIOL VAGINAL 0.1 MG/GM vaginal Cream ESTRADIOL VAGINAL 0.1 MG/GM vaginal Cream - 00:00: 00 Yes [id number] 9107 Anna murillo Cholecalcif sakina (Vitamin D-3) 25 MCG (1000 UT) oral Capsule 12-27 08:31: 08 Yes Anna murillo Valacyclovi r HCl (Valtrex) 1 g oral Tablet 1-04 00:00: 00 05-22 05:59 :00 No [id number] 2000mg Take 2 tablets (2,000 mg total) by mouth 2 times daily for 1 day. Anna murillo Vitamin D, Ergocalcife rol, [address] units oral Capsule 2022-05 2-05 00:00: 00 05-19 00:00 :00 No [id number] 1{capsu le} Q1W Take 1 capsule by mouth once a week. Anna murillo Semaglutide -Weight Management (Wegovy) 0.25 MG/0.5ML subcutaneou s Solution Auto-inject or 2022-05 1-20 00:00: 00 12-27 00:00 :00 No [id number] .25mg Q1W Inject 0.25 mg into the skin once a week. Anna murillo Phentermine HCl 37.5 MG oral Tablet 922 00:00: 00 12-27 00:00 :00 No TAKE ONE (1) TABLET (37.5 MG TOTAL) BY MOUTH EVERY MORNING (BEFORE BREAKFAST) . Anna murillo Cholecalcif sakina (Vitamin D3) 1.25 MG (07376 UT) oral Capsule 12-31 12:47: 48 Yes Vitamin D3 Anna murillo Semaglutide -Weight Management (Wegovy) 0.25 MG/0.5ML subcutaneou s Solution Auto-inject or 12-31 00:00: 00 Yes [id number] .25mg Inject 0.25 mg into the skin once a week Anna murillo Tirzepatide (Mounjaro) 2.5 MG/0.5ML subcutaneou s Solution Pen-injecto r 7-12 00:00: 00 12-31 00:00 :00 No [id number] 2.5mg Inject 0.5 mL (2.5 mg total) into the skin once a week Anna murillo FLUTICASONE PROPIONATE, NASAL, 50 MCG/ACT nasal Suspension 11-14 00:00: 00 Yes [id number] 100ug Use 2 sprays (100 mcg total) in each nostril daily Anna murillo predniSONE (DELTASONE) 10 MG oral tablet 11-14 00:00: 00 Yes [id number] Take 1 tablet 3 times daily for 3 days, then take 1 tablet 2 times daily for 2 days, then take 1 tablet once daily for 2 days Anna murillo Azithromyci n 250 MG oral Tablet 11-14 00:00: 00 11-20 04:59 :00 No [id number] Take 2 tablets by mouth on day 1 then 1 tablet by mouth daily for 4 days thereafter . Anna murillo OZEMPIC (1 mg/dose) 4 mg/3 mL SQ Solution Pen-Injecto r 08-09 00:00: 00 Yes [id number] 1mg INJECT 1 MG INTO THE SKIN ONCE A WEEK Anna murillo Cholecalcif sakina (Vitamin D3) 1.25 MG (23916 UT) oral Capsule 2021-05 15:56: 58 Yes Vitamin D3 Anna murillo methylPREDN ISolone 4 MG oral Tablet Therapy Pack 2021-05 00:00: 00 Yes [id number] 1{melly} Take 1 melly by mouth See Admin Instructio ns Use as directed Anna murillo Azithromyci n 250 MG oral Tablet 2021-05 00:00: 00 04-09 05:59 :00 No [id number] Take 2 tablets by mouth on day 1 then 1 tablet by mouth daily for 4 days thereafter . Anna murillo Cholecalcif sakina (Vitamin D3) 1.25 MG (59804 UT) oral Capsule 2021-05 08:04: 36 Yes Vitamin D3 Anna murillo OZEMPIC (0.25 or 0.5 mg/dose) 2 mg/1.5 mL SQ Solution Pen-Injecto r 2021-0518 00:00: 00 Yes [id number] .5mg Inject 0.5 mg into the skin once a week Anna murillo OZEMPIC (0.25 or 0.5 mg/dose) 2 mg/1.5 mL SQ Solution Pen-Injecto r 2021-05 00:00: 00 Yes [id number] .5mg Inject 0.5 mg into the skin once a week Anna murillo Phentermine HCl 37.5 MG oral Tablet 2021-05 00:00: 00 12-31 00:00 :00 No [id number] 37.5mg Take 1 tablet (37.5 mg total) by mouth every morning (before breakfast) Anna murillo Bupropion HCL XL 150 MG OR TB24 10-08 00:00: 00 Yes [id number] 150mg Take 1 tablet (150 mg total) by mouth daily Anna Mcneill Cyclobenzap rine HCl 10 MG oral Tablet 2020-05 00:00: 00 Yes [id number] 10mg Q.[id number] 3D Take 1 tablet (10 mg total) by mouth 3 times daily as needed for muscle spasms Anna Mcneill Etodolac 400 MG oral Tablet 2020-05 00:00: 00 Yes [id number] 400mg Take 1 tablet (400 mg total) by mouth 2 times daily Anna Mcneill No known medications No Un [facility] No known medications No Un karol [facility] Immunizations Ordered Immunization Name Filled Immunization Name Date Status Comments Source Covid-19 Vaccine Moderna (Spikevax), Mrna-lnp, Rob Protein, Pf 2020-09-09 00:00:00 May David Covid-19 Vaccine (Moderna), Mrna-lnp, Rob Protein, Pf, 100 Mcg/0.5ml,IM 2020-09-09 00:00:00 May Mcneill Covid-19 Vaccine Moderna (Spikevax), Mrna-lnp, Rob Protein, Pf 2020-09-09 00:00:00 Completed Anna Seybold - External Covid-19 Vaccine Moderna (Spikevax), Mrna-lnp, Rob Protein, Pf 2020-09-09 00:00:00 Completed Anna Huntleyybold Covid-19 Vaccine Moderna (Spikevax), Mrna-lnp, Rob Protein, Pf Covid-19 Vaccine Moderna (Spikevax), Mrna-lnp, Rob Protein, Pf 2020-09-09 00:00:00 Completed Anna Seybold - External Covid-19 Vaccine Moderna (Spikevax), Mrna-lnp, Rob Protein, Pf 2020-09-09 00:00:00 Completed Anna Seybold - External Covid-19 Vaccine Moderna (Spikevax), Mrna-lnp, Rob Protein, Pf 2020-09-09 00:00:00 Completed Anna ybold - External Tdap- (Boostrix, Adacel) 2018-12-27 00:00:00 Completed Anna Seybold - External Tdap- (Boostrix, Adacel) 2018-12-27 00:00:00 Completed Anna Seybold - External Tdap- (Boostrix, Adacel) 2018-12-27 00:00:00 Completed Anna Huntleyybold Tdap- (Boostrix, Adacel) Tdap- (Boostrix, Adacel) 2018-12-27 00:00:00 Completed Anna Seybold - External Tdap- (Boostrix, Adacel) 2018-12-27 00:00:00 Completed Anna Seybold - External Tdap- (Boostrix, Adacel) 2018-12-27 00:00:00 Completed Anna Seybold - External Td,absorbed PF KSC,Admin,unspecifi ed 2007-05-17 00:00:00 Completed Anna Seybold - External Td,absorbed PF KSC,Admin,unspecifi ed 2007-05-17 00:00:00 Completed Anna Seybold - External Tdap- (Boostrix, Adacel) 2007-05-17 00:00:00 Completed Anna Seybold - External Td,absorbed PF KSC,Admin,unspecifi ed 2007-05-17 00:00:00 Completed Anna Seybold Td,absorbed PF KSC,Admin,unspecifi ed 2007-05-17 00:00:00 Completed Anna Seybold Td,absorbed PF KSC,Admin,unspecifi ed Td,absorbed PF KSC,Admin,unspecif ied 2007-05-17 00:00:00 Completed Anna Seybold - External Tdap- (Boostrix, Adacel) Tdap- (Boostrix, Adacel) 2007-05-17 00:00:00 Completed Anna Seybold - External Td,absorbed PF KSC,Admin,unspecifi ed 2007-05-17 00:00:00 Completed Anna Seybold - External Td,absorbed PF KSC,Admin,unspecifi ed 2007-05-17 00:00:00 Completed Anna Seybold - External Td 2007-05-17 00:00:00 Completed [facility] Td 2007-05-17 00:00:00 Completed [facility] Covid-19 Vaccine Moderna (Spikevax), Mrna-lnp, Rob Protein, Pf Unknown Completed Anna Seybold - External Td,absorbed PF KSC,Admin,unspecifi ed Unknown Completed Anna Huntleyybold - External Tdap- (Boostrix, Adacel) Unknown Completed Anna Seybold - External Covid-19 Vaccine Moderna (Spikevax), Mrna-lnp, Rob Protein, Pf Unknown Completed Anna Seybold - External Td,absorbed PF KSC,Admin,unspecifi ed Unknown Completed Anna Seybold - External Tdap- (Boostrix, Adacel) Unknown Completed Anna Seybold - External Covid-19 Vaccine Moderna (Spikevax), Mrna-lnp, Rob Protein, Pf Unknown Completed Anna Seybold - External Td,absorbed PF KSC,Admin,unspecifi ed Unknown Completed Anna Seybold - External Tdap- (Boostrix, Adacel) Unknown Completed Anna Seybold - External Covid-19 Vaccine Moderna (Spikevax), Mrna-lnp, Rob Protein, Pf Unknown Completed Anna Seybold - External Td,absorbed PF KSC,Admin,unspecifi ed Unknown Completed Anna Seybold - External Tdap- (Boostrix, Adacel) Unknown Completed Anna Seybold - External Covid-19 Vaccine Moderna (Spikevax), Mrna-lnp, Rob Protein, Pf Unknown Completed Anna Seybold - External Td,absorbed PF KSC,Admin,unspecifi ed Unknown Completed Anna Seybold - External Tdap- (Boostrix, Adacel) Unknown Completed Anna Seybold - External Covid-19 Vaccine Moderna (Spikevax), Mrna-lnp, Rob Protein, Pf Unknown Completed Anna Seybold - External Td,absorbed PF KSC,Admin,unspecifi ed Unknown Completed Anna Seybold - External Tdap- (Boostrix, Adacel) Unknown Completed Anna Seybold - External Covid-19 Vaccine Moderna (Spikevax), Mrna-lnp, Rob Protein, Pf Unknown Completed Anna Seybold - External Td,absorbed PF KSC,Admin,unspecifi ed Unknown Completed Anna Seybold - External Tdap- (Boostrix, Adacel) Unknown Completed Anna Seybold - External Covid-19 Vaccine Moderna (Spikevax), Mrna-lnp, Rob Protein, Pf Unknown Completed Anna Seybold - External Td,absorbed PF KSC,Admin,unspecifi ed Unknown Completed Anna Seybold - External Tdap- (Boostrix, Adacel) Unknown Completed Anna Huntleyybold - External Vital Signs Vital Name Observation Time Observation Value Comments S ource Body height 2024-12-18 09:40:00 175.3 cm Brittany ey Seybold - External Body weight 2024-12-18 09:40:00 97.07 kg Brittany ey Seybold - External BMI 2024-12-18 09:40:00 31.60 kg/m2 Brittany ey Seybold - External Body height 2024-10-24 13:29:00 175.3 cm Brittany ey Seybold - External Body weight 2024-10-24 13:29:00 97.07 kg Brittany ey Seybold - External BMI 2024-10-24 13:29:00 31.60 kg/m2 Brittany ey Seybold - External Systolic blood pressure 2024-10-20 17:51:00 116 mm[Hg] Anna Sechilangoo ld - External Diastolic blood pressure 2024-10-20 17:51:00 70 mm[Hg] Anna Seybo ld - External Heart rate 2024-10-20 17:51:00 82 /min Kelse y Seybold - External Body temperature 2024-10-20 17:51:00 36.17 Kaye Anna Seybold - External Respiratory rate 2024-10-20 17:51:00 14 /min Anna Seybold - External Body height 2024-10-20 17:51:00 175.3 cm Brittany ey Seybold - External Body weight 2024-10-20 17:51:00 96.616 kg Brittany ey Seybold - External BMI 2024-10-20 17:51:00 31.45 kg/m2 Brittany ey Seybold - External Oxygen saturation in Arterial blood by Pulse oximetry 2024-10-20 17:51:00 97 /min Anna Seybo ld - External Systolic blood pressure 2024-08-24 19:24:00 110 mm[Hg] Anna Seybo ld - External Diastolic blood pressure 2024-08-24 19:24:00 64 mm[Hg] Anna Seybo ld - External Heart rate 2024-08-24 19:24:00 67 /min Francose y Seybold - External Body temperature 2024-08-24 19:24:00 36.06 Kaye Anna Seybold - External Respiratory rate 2024-08-24 19:24:00 14 /min Anna Seybold - External Body height 2024-08-24 19:24:00 175.3 cm Brittany ey Seybold - External Body weight 2024-08-24 19:24:00 100.245 kg Brittany ey Seybold - External BMI 2024-08-24 19:24:00 32.64 kg/m2 Brittany ey Seybold - External Oxygen saturation in Arterial blood by Pulse oximetry 2024-08-24 19:24:00 97 /min Anna Seybo ld - External Systolic blood pressure 2024-07-13 20:39:00 116 mm[Hg] Anna Seybo ld - External Diastolic blood pressure 2024-07-13 20:39:00 68 mm[Hg] Anna Seybo ld - External Heart rate 2024-07-13 20:39:00 68 /min Kelse y Seybold - External Body temperature 2024-07-13 20:39:00 36.06 Kaye nAna Huntleyybold - External Respiratory rate 2024-07-13 20:39:00 15 /min Anna Weissold - External Body height 2024-07-13 20:39:00 175.3 cm Brittany smith Seybold - External Body weight 2024-07-13 20:39:00 104.781 kg Brittany ey Seybold - External BMI 2024-07-13 20:39:00 34.11 kg/m2 Brittany Weissold - External Oxygen saturation in Arterial blood by Pulse oximetry 2024-07-13 20:39:00 98 /min Anna Weisso ld - External Height 2024-07-04 00:00:00 69 [in_i] [facility] BP Systolic 2024-07-04 00:00:00 111 mm[Hg] [facility] Body Weight 2024-07-04 00:00:00 230 [lb_av] [facility] BP Diastolic 2024-07-04 00:00:00 64 mm[Hg] [facility] BMI (Body Mass Index) 2024-07-04 00:00:00 34 kg/m2 [facility] Body Weight 2024-05-23 00:00:00 223.6 [lb_av] [facility] BP Systolic 2024-05-23 00:00:00 109 mm[Hg] [facility] BMI (Body Mass Index) 2024-05-23 00:00:00 33 kg/m2 [facility] Height 2024-05-23 00:00:00 69 [in_i] [facility] BP Diastolic 2024-05-23 00:00:00 81 mm[Hg] [facility] Systolic blood pressure 2024-05-19 13:56:00 102 mm[Hg] Anna chilangoo ld - External Diastolic blood pressure 2024-05-19 13:56:00 68 mm[Hg] Anna Weisso ld - External Heart rate 2024-05-19 13:56:00 69 /min Francose jan Mcneill - External Body temperature 2024-05-19 13:56:00 35.83 Kaye Anna Seybold - External Respiratory rate 2024-05-19 13:56:00 15 /min Anna ybold - External Body height 2024-05-19 13:56:00 175.3 cm Brittany smith Seybold - External Body weight 2024-05-19 13:56:00 107.593 kg Brittany smith Seybold - External BMI 2024-05-19 13:56:00 35.03 kg/m2 Brittany smith Seybold - External Oxygen saturation in Arterial blood by Pulse oximetry 2024-05-19 13:56:00 98 /min Anna jose ld - External BP Diastolic 2024-05-03 00:00:00 78 mm[Hg] [facility] Height 2024-05-03 00:00:00 69 [in_i] [facility] Body Weight 2024-05-03 00:00:00 223.6 [lb_av] [facility] BMI (Body Mass Index) 2024-05-03 00:00:00 33 kg/m2 [facility] BP Systolic 2024-05-03 00:00:00 121 mm[Hg] [facility] Body Weight 2024-03-27 00:00:00 223.6 [lb_av] [facility] Height 2024-03-27 00:00:00 69 [in_i] [facility] BMI (Body Mass Index) 2024-03-27 00:00:00 33 kg/m2 [facility] BP Systolic 2024-03-27 00:00:00 113 mm[Hg] [facility] BP Diastolic 2024-03-27 00:00:00 66 mm[Hg] [facility] BMI (Body Mass Index) 2024-03-15 00:00:00 33 kg/m2 [facility] BP Diastolic 2024-03-15 00:00:00 74 mm[Hg] [facility] BP Systolic 2024-03-15 00:00:00 119 mm[Hg] [facility] Body Weight 2024-03-15 00:00:00 223.6 [lb_av] [facility] Height 2024-03-15 00:00:00 69 [in_i] [facility] BP Diastolic 2024-03-08 00:00:00 68 mm[Hg] [facility] Body Weight 2024-03-08 00:00:00 221.6 [lb_av] [facility] BP Systolic 2024-03-08 00:00:00 111 mm[Hg] [facility] BMI (Body Mass Index) 2024-03-08 00:00:00 32.7 kg/m2 [facility] Height 2024-03-08 00:00:00 69 [in_i] [facility] Height 2024-03-07 00:00:00 69 [in_i] [facility] BP Diastolic 2024-03-07 00:00:00 72 mm[Hg] [facility] BP Systolic 2024-03-07 00:00:00 128 mm[Hg] [facility] Body Weight 2024-03-07 00:00:00 221.6 [lb_av] [facility] BMI (Body Mass Index) 2024-03-07 00:00:00 32.7 kg/m2 [facility] BP Diastolic 2024-02-29 00:00:00 73 mm[Hg] [facility] BMI (Body Mass Index) 2024-02-29 00:00:00 31.3 kg/m2 [facility] Height 2024-02-29 00:00:00 69 [in_i] [facility] Body Weight 2024-02-29 00:00:00 212.2 [lb_av] [facility] BP Systolic 2024-02-29 00:00:00 110 mm[Hg] [facility] BP Systolic 2024-01-19 00:00:00 129 mm[Hg] [facility] Body Weight 2024-01-19 00:00:00 212.2 [lb_av] [facility] BP Diastolic 2024-01-19 00:00:00 77 mm[Hg] [facility] Systolic blood pressure 2023-12-28 13:29:00 107 mm[Hg] Anna Ignacio ld - External Diastolic blood pressure 2023-12-28 13:29:00 72 mm[Hg] Anna Weisso ld - External Heart rate 2023-12-28 13:29:00 61 /min Rosa Weissold - External Respiratory rate 2023-12-28 13:29:00 17 /min Anna Huntleyybold - External Body height 2023-12-28 13:29:00 175.3 cm Brittany Weissold - External Body weight 2023-12-28 13:29:00 95.074 kg Brittany ey Seybold - External BMI 2023-12-28 13:29:00 30.95 kg/m2 Brittany ey Seybold - External Body temperature 2022-12-31 17:46:00 36.61 Kaye Anna Seybold - External Respiratory rate 2022-12-31 17:46:00 19 /min Anna Seybold - External Body height 2022-12-31 17:46:00 175.3 cm Brittany ey Seybold - External Body weight 2022-12-31 17:46:00 88.451 kg Brittany ey Seybold - External BMI 2022-12-31 17:46:00 28.80 kg/m2 Brittany smith Seybold - External Oxygen saturation in Arterial blood by Pulse oximetry 2022-12-31 17:46:00 97 /min Anna Weisso ld - External Systolic blood pressure 2022-04-03 21:53:00 102 mm[Hg] Anna Huntleyybo ld - External Diastolic blood pressure 2022-04-03 21:53:00 62 mm[Hg] Anna Huntleyybo ld - External Heart rate 2022-04-03 21:53:00 89 /min Rosa montoya Seybold - External Body temperature 2022-04-03 21:53:00 35.83 Kaye Anna Huntleyybold - External Respiratory rate 2022-04-03 21:53:00 14 /min Anna Huntleyybold - External Body height 2022-04-03 21:53:00 175.3 cm Brittany smith Seybold - External Body weight 2022-04-03 21:53:00 98.431 kg Brittany ey Seybold - External BMI 2022-04-03 21:53:00 32.05 kg/m2 Brittany smith Seybold - External BP Diastolic 2021-12-31 00:00:00 72 mm[Hg] [facility] Height 2021-12-31 00:00:00 69 [in_i] [facility] BMI (Body Mass Index) 2021-12-31 00:00:00 33.8 kg/m2 [facility] BP Systolic 2021-12-31 00:00:00 116 mm[Hg] [facility] Body Weight 2021-12-31 00:00:00 229 [lb_av] [facility] BP Diastolic 2021-11-05 00:00:00 83 mm[Hg] [facility] Height 2021-11-05 00:00:00 69 [in_i] [facility] BMI (Body Mass Index) 2021-11-05 00:00:00 32.6 kg/m2 [facility] BP Systolic 2021-11-05 00:00:00 126 mm[Hg] [facility] Body Weight 2021-11-05 00:00:00 221 [lb_av] [facility] Systolic blood pressure 2021-10-08 14:09:00 113 mm[Hg] Anna Seybo ld Diastolic blood pressure 2021-10-08 14:09:00 83 mm[Hg] Anna Seybo ld Heart rate 2021-10-08 14:09:00 65 /min Kelse y Seybold Body temperature 2021-10-08 14:09:00 36.44 Kaye Anna Seybold Respiratory rate 2021-10-08 14:09:00 14 /min Anna Seybold Body height 2021-10-08 14:09:00 175.3 cm Brittany ey Seybold Body weight 2021-10-08 14:09:00 103.874 kg Brittany ey Seybold BMI 2021-10-08 14:09:00 33.82 kg/m2 Brittany ey Seybold Oxygen saturation in Arterial blood by Pulse oximetry 2021-10-08 14:09:00 99 /min Anna Seybo ld Systolic blood pressure 2021-03-12 18:04:00 119 mm[Hg] Anna Seybo ld Diastolic blood pressure 2021-03-12 18:04:00 80 mm[Hg] Anna Seybo ld Heart rate 2021-03-12 18:04:00 68 /min Kelse y Seybold Body temperature 2021-03-12 18:04:00 36.56 Kaye Anna Seybold Respiratory rate 2021-03-12 18:04:00 14 /min Anna Seybold Body height 2021-03-12 18:04:00 175.3 cm Brittany ey Seybold Body weight 2021-03-12 18:04:00 102.967 kg Brittany ey Seybold BMI 2021-03-12 18:04:00 33.52 kg/m2 Brittany Mcneill Procedures Procedure Date / Time Performed Performing Clinician Source MAMMO, screening, digital, bilateral 2024-07-04 [facility]24-[facility]-20 00:00:00 Charlie M edical MAMMO, screening, digital, bilateral 2024-03-07 00:00:00 [facility] US TRANSVAGINAL 2024-01-20 00[facility]00[facility], screening, bilateral 2021-12-31 00:00:00 [facility] US ABDOMEN COMPLETE 2020-09-11 14:36:27 Lona Aguiar [facility] ASSIGNMENT OF BENEFITS 2020-09-11 13:57:19 Docto jeffery Unassigned, [facility] Cholecystectomy (Gallbladder) 2019-05-17 00:00:00 [facility] Medical Inguinal Hernia 2007-05-17 00:00:00 [facility] a Medical Orthopedic - Arthroscopic Surgery 2004-05-17 00:00:00 [facility] Medical Abdominoplasty 2004-05-17 00:00:00 [facility] Medical ARTHROCENTESIS ASPIR&/INJ MAJOR JT/BURSA W/O US Anna Mcneill - External Plan of Care Planned Activity Planned Date Details Comments Source Encounters Start Date/Time End Date/Time Encounter Type Admission Type Attending [facility] Care Facility Care Department Encounter ID Source 2024-04-18 12:36:00 Outpatient [facility] [id number] [facility] 2023-05-20 08:35:01 Outpatient STLC [facility] [id number] [facility] 2022-04-13 08:06:01 Outpatient STLMLC [facility] [id number] [facility] 2025-04-20 08:30:00 2025-04-20 08:30:00 Outpatient BRIONNA GARG [id number] Anna Mcneill 2025-01-18 00:00:00 2025-01-18 00:00:00 Outpatient BRIONNA GARG [id number] Anna Mcneill 2024-12-18 09:20:00 2024-12-18 09:20:00 Outpatient ANNA ANNA [id number] Anna Huntleykemi 2024-12-18 09:15:00 2024-12-18 09:15:00 [facility]patient [facility]NA [facility] [id number] [facility] 2024-12-18 09:15:00 2024-12-18 09:15:00 Outpatient ANNA ANNA [id number] [facility] 2024-12-18 08:40:00 2024-12-18 08:40:00 Outpatient ANNA, ANEF ANNA BAUM [id number] [facility] 2024-12-18 00:00:00 2024-12-18 00:00:00 Outpatient ANNA, ANEF ANNA BAUM [id number] Anna [facility] 2024-12-18 00:00:00 2024-12-18 00:00:00 Outpatient ANNA, ANEF [facility] BA[facility] [id number] [facility] 2024-12-15 10:00:00 2024-12-15 10:00:00 Outpatient MAN MENDOZA [id number] Anna [facility] 2024-11-29 14:30:00 2024-11-29 14:30:00 Outpatient CAITLYN MIRZA [id number] Anna [facility] 2024-11-28 15:10:00 2024-11-28 15:10:00 Outpatient BRIONNA GARG [id number] Anna [facility] 2024-11-22 08:50:00 2024-11-22 08:50:00 Outpatient MONTRELL SIFUENTES [id number] Anna [facility] 2024-10-24 09:20:00 2024-10-24 09:20:00 Outpatient MONTRELL SIFUENTES [id number] Anna [facility] 2024-10-24 08:05:00 2024-10-24 08:05:00 Outpatient ANNA BAUM [id number] [facility] 2024-10-23 09:30:00 2024-10-23 09:30:00 Outpatient MAN MENDOZA [id number] Anna Osito 2024-10-23 00:00:00 2024-10-23 00:00:00 Outpatient MARIAMONTRELL ANNA BAUM [id number] Anna Mcneill 2024-10-20 13:00:00 2024-10-20 13:00:00 Outpatient HUNDL, MAN BAUM [id number] Anna Mcneill 2024-08-24 14:30:00 2024-08-24 14:30:00 Outpatient HUNDL, MAN BAUM [id number] [facility] 2024-07-13 14:30:00 2024-07-13 14:30:00 Outpatient HUNDL, MAN BAUM [id number] [facility] 2024-07-04 00:00:00 2024-07-04 00:00:00 Rachel Thompson MD: [address], [place] [address] , Ph. Critical access hospital - [facility]* [id number] [facility] 2024-07-03 08:00:00 2024-07-03 08:00:00 Outpatient HUNDL, MAN BAUM [id number] [facility] 2024-05-24 00:00:00 2024-05-24 00:00:00 Outpatient HUNDL, MAN BAUM [id number] [facility] 2024-05-23 00:00:00 2024-05-23 00:00:00 Rachel Thompson MD: [address], [place] [address] , Ph. Critical access hospital - [facility]* [id number] [facility] 2024-05-22 00:00:00 2024-05-22 00:00:00 Outpatient LISETL, MAN BAUM [id number] [facility] 2024-05-19 08:45:00 2024-05-19 08:45:00 Outpatient LAB90 ANNA ANNA [id number] Anna Mcneill 2024-05-19 08:00:00 2024-05-19 08:00:00 Outpatient MAN MENDOZA ANNA [id number] Anna Huntleylia 2024-05-03 00:00:00 2024-05-03 00:00:00 TERA Zuniga: [address], [place] [address] , Ph. Critical access hospital - [facility]* [id number] [facility] 2024-03-27 00:00:00 2024-03-27 00:00:00 LAI HerP: [address], [place] [address] , Ph. Critical access hospital - [facility] [id number] [facility] 2024-03-23 00:00:00 2024-03-23 00:00:00 Rachel Thompson MD: [address], [place] [address] , Ph. Critical access hospital - [facility]* [id number] [facility] 2024-03-20 09:41:00 2024-03-21 11:45:00 Inpatient Antony Madison [facility].01 [id number] 24 [facility] 2024-03-15 00:00:00 2024-03-15 00:00:00 RIZWANA Her: [address], [place] [address] , Ph. Critical access hospital - [facility]* [id number] [facility] 2024-03-08 00:00:00 2024-03-08 00:00:00 Rachel Thompson MD: [address], [place] [id number] , Ph. Critical access hospital - [facility]* [id number] [facility] 2024-03-07 00:00:00 2024-03-07 00:00:00 LAI CollierP: [address], [place] [address] , Ph. Critical access hospital - [facility]* [id number] [facility] 2024-02-29 00:00:00 2024-02-29 00:00:00 Rachel Thompson MD: [address], [place] [address] , Ph. Critical access hospital - [facility]* [id number] [facility] 2024-02-01 00:00:00 2024-02-01 00:00:00 TERA Zuniga: [address], [place] [address] , Ph. Critical access hospital - [facility]* [id number] [facility] 2024-01-20 00:00:00 2024-01-20 00:00:00 Rachel Thompson MD: [address], [place] [address] , Ph. Critical access hospital - [facility]* [id number] [facility] 2024-01-19 00:00:00 2024-01-19 00:00:00 Rachel Thompson MD: [address], [place] [address] , Ph. Critical access hospital - [facility]* [id number] [facility] 2023-12-28 08:45:00 2023-12-28 08:45:00 Outpatient RAJI JOHNS ANNA BAUM [id number] Anna [facility] 2023-05-20 09:45:00 2023-05-20 09:45:00 Outpatient KASH ABEBE ANNA BAUM [id number] [facility] 2023-05-20 00:00:00 2023-05-20 00:00:00 Outpatient HUNDL, MAN BAUM [id number] [facility] 2023-04-15 00:00:00 2023-04-15 00:00:00 Outpatient HUNDL, MAN BAUM [id number] [facility] 2023-04-04 00:00:00 2023-04-04 00:00:00 Outpatient HUNDL, MAN BAUM [id number] [facility] 2023-02-05 00:00:00 2023-02-05 00:00:00 Outpatient HUNDL, MAN BAUM [id number] [facility] 2023-01-19 00:00:00 2023-01-19 00:00:00 Outpatient HUNDL, MAN BAUM [id number] [facility] 2023-01-12 08:55:00 2023-01-12 08:55:00 Outpatient LAB90 ANNA BAUM [id number] [facility] 2023-01-02 00:00:00 2023-01-02 00:00:00 Outpatient HUNDL, MAN BAUM [id number] [facility] 2022-12-31 13:00:00 2022-12-31 13:00:00 Outpatient HUNDL, MAN BAUM [id number] Anna [facility] 2022-12-03 00:00:00 2022-12-03 00:00:00 Outpatient HUNDL, MAN BAUM [id number] [facility] 2022-12-02 00:00:00 2022-12-02 00:00:00 Outpatient HUNDL, MAN BAUM [id number] [facility] 2022-11-30 00:00:00 2022-11-30 00:00:00 Outpatient HUNDL, MAN BAUM [id number] Anna Seybold 2022-11-25 00:00:00 2022-11-25 00:00:00 Outpatient HUNDL, MAN BAUM [id number] Anna Seybold 2022-11-14 14:00:00 2022-11-14 14:00:00 Outpatient GM, TITI BAUM [id number] Anna Seybold 2022-09-30 00:00:00 2022-09-30 00:00:00 Outpatient HUNDL, MAN BAUM [id number] Anna Seybold 2022-09-10 00:00:00 2022-09-10 00:00:00 Outpatient HUNDL, MAN BAUM [id number] Anna Seybold 2022-08-07 00:00:00 2022-08-07 00:00:00 Outpatient HUNDL, MAN BAUM [id number] Anna Seybold 2022-06-08 00:00:00 2022-06-08 00:00:00 Outpatient HUNDL, MAN BAUM [id number] Anna Seybold 2022-05-02 00:00:00 2022-05-02 00:00:00 Outpatient HUNDL, MAN BAUM [id number] Anna Seybold 2022-04-14 09:30:00 2022-04-14 09:30:00 Outpatient LAB53 ANNA BAUM [id number] Anna Seybold 2022-04-14 09:00:00 2022-04-14 09:00:00 Outpatient ONLY, JUANCHO BAUM [id number] Anna Seybold 2022-04-14 08:35:00 2022-04-14 08:35:00 Outpatient LAB53 ANNA BAUM [id number] Anna Seybold 2022-04-03 16:30:00 2022-04-03 16:30:00 Outpatient HUNDL, MAN BAUM [id number] Anna Seybold 2022-04-03 08:00:00 2022-04-03 08:00:00 Outpatient HUNDL, MAN BAUM [id number] Anna Mcneill 2022-03-25 15:30:00 2022-03-25 15:30:00 Outpatient VANIA ALVAREZ ANNA BAUM [id number] Anna Osito 2022-03-23 00:00:00 2022-03-23 00:00:00 Outpatient MD ANNA JARAMILLO [id number] Anna lia 2022-03-23 00:00:00 2022-03-23 00:00:00 Outpatient MD ANNA JARAMILLO [id number] Anna chilangokemi 2022-03-03 08:00:00 2022-03-03 08:00:00 Outpatient MAN MENDOZA [id number] [facility] 2022-02-02 15:00:00 2022-02-02 15:00:00 Outpatient MAN MENDOZA [id number] [facility] 2021-12-31 00:00:00 2021-12-31 00:00:00 Outpatient Zbigniew Klein [facility] [id number] 2021-12-31 00:00:00 2021-12-31 00:00:00 Zbigniew Klein MD: [place] [address] , Ph. [facility] [id number] [facility] 2021-11-05 00:00:00 2021-11-05 00:00:00 Outpatient MAN MENDOZA [id number] [facility] 2021-11-05 00:00:00 2021-11-05 00:00:00 Zbigniew Klein MD: [place] [address] , Ph. [facility] [id number] [facility] 2021-11-05 00:00:00 2021-11-05 00:00:00 Outpatient Zbigniew Klein [facility] [id number] 2021-10-10 00:00:00 2021-10-10 00:00:00 Outpatient MAN MENDOZA [id number] Anna Mcneill 2021-10-08 09:45:00 2021-10-08 09:45:00 Outpatient LAB90 ANNA BAUM [id number] [facility] 2021-10-08 09:00:00 2021-10-08 09:30:00 Office Visit Man Mendoza [id number] Anna Mcneill 2021-03-12 12:57:35 2021-03-12 13:27:35 Office Visit Sabrina Quijano Aman Nicolas [id number] Anna Mcneill 2020-09-11 08:58:01 2020-09-11 23:59:00 Hospital Encounter Orlando Aguiar [facility] [id number] [facility] 2020-09-11 00:00:00 2020-09-11 00:00:00 Outpatient R ORLANDO AGUIAR [facility] [id number] [facility] 2020-09-11 00:00:00 2020-09-11 00:00:00 Orders Only Doctor Unassigned, [facility] [id number] [facility] Results Test Description Test Time Test Comments Results Result Co mments Source [facility] Medicalmeasurement of post-voiding residual urine and/or bladder capacity (PROC)2024-05-03 12:06:00* Test Item Value Reference Range Interpretation Comme nts (PVR) (test code = (PVR)) 45 [facility] Medicalmeasurement of post-voiding residual urine and/or bladder capacity (PROC)2024-03-27 12:03:00* Test Item Value Reference Range Interpretation Comme nts (PVR) (test code = (PVR)) 0 Charlie [id number] 17:23:00* Test Item Value Reference Range Interpretation Comme nts SURGICAL (test code = SR) R UN DATE: 03/24/24 [facility] PAGE 1 RUN TIME: 1723 Specimen Inquiry RUN USER: INTERFACE P ATIENT: DARIEN LOOMIS LOC: ALICIA #: [id number] AGE/SX: 48/F ROOM: [facility] RE03/20/24REG DR: Antony Harrington MD : 74 BED: 1 DIS: 03/21/24 STATUS: DIS Josephine TLOC: SPEC #: [id number] RECD: 03/21/24 STATUS: SAPPHIRE MACHADO #: [id number] RAINA: 03/20/24 [facility] DR: Antony Harrington MD ENTERED: 03/21/24 SP TYPE: SURGICAL OTHR DR: Rachel Thompson MD, Roland DOORDERED: [id number], ANATOMIC SPEC, SPECIMEN TRACK COPIES TO: Rachel Thompson MD [address] [facility] [address] [place] [address] [place] [address] [place] [address] [email or web address] Reggie Drake DO [address] [address] [place] [address] PROCEDURES: [id number] (03/22/24) SPECIMEN TRACK (03/21/24) TISSUES: A. UTERUS - UTERUS, CERVIX, BILATERAL FALLOPIAN TUBES AND OVARY FINAL DIAGNOSIS Uterus (108 g), fallopian tubes and ovaries, hysterectomy and bilateralsalpingo-oophorectomie s:- Cervix, mild mix cervicitis with squamous metaplasia and few Nabothian cysts- Endometrium, mild proliferative changes- Myometrium, no morphologic alterations- Serosa, no morphologic alteration Ovaries:- Right: small mesothelial cysts; atrophic changes- Left: one mesothelial cyst; atrophic changes Fallopian tubes:- Wall, lumen and fimbriated end identified, bilaterally; no morphologic alterations,except for vascular congestion CONTINUED ON NEXT PAGE R UN DATE: 03/24/24 [facility] PAGE 2 RUN TIME: 1723 Specimen Inquiry RUN USER: INTERFACE S PEC #: [id number]:[facility]:[id number] PATIENT: DARIEN LOOMIS #[id number] (Continued) FINAL DIAGNOSIS (Continued) Comment: Negative of atypia/malignancy suggest clinical correlation, GROSS DESCRIPTION Uterus with bilateral fallopian tubes and ovaries. Received is a uterus with attachedbilateral fallopian tubes and ovaries. The uterus weighs 108 g. It measures cornu to cornu7 cm, posterior to anterior 4 cm and fundus to cervix 9.5 cm. The cervix measures 3.5 x2.3 cm with a cervical os transverse diameter of 1 cm. The uterus is bivalved revealing ared-pink smooth cervical canal of 4 cm in length. The endometrial cavity measures 2.5 x2.7 cm. It is covered by endometrium of 0.2 cm in thickness. Sectioning through the uterinewall reveals a uterine wall thickness of 2 cm. The cervical canal has a clear fluid-filledcyst measuring 0.5 cm. No papillary features are seen. The serosal surface is smooth andglistening. The right ovary measures 2.5 x 1.8 x 1 cm. Cut sections reveal a clearfluid-filled cyst measuring 0.8 cm. It is filled with clear fluid. No papillary featuresare noted. The right fallopian tube with fimbriated end measures 4.5 cm in length and hasa diameter of 1 cm. The left ovary with cerebral form surface measures 2 x 1.3 x 1 cm. Cut sections reveal 2 clear fluid-filled cyst measuring 0.5 and 0.6 cm. The left fallopiantube with fimbriated end measures 5 cm in length and has a diameter of 0.8 cm. A1 posterior cervixA2 anterior cervixA3 posterior endomyometrium A4-A5 anterior endomyometrium A6 posterior reflectionA7 right ovary cut surface including cystA8 right fallopian tube cut surface with entire bisected fimbriated endA9 left ovary cut surface including cystA10 left fallopian tube cut surface with entire bisected fimbriated end Technical tissue processing and slide preparation performed at [id number] , [place] [address] Unless gross only, the diagnosis is based upon microscopic examination.Immunohistochemistr y: This test was developed and its performance characteristicsdetermined by this laboratory. It has not been approved nor does it need approval by the USFDA. Appropriate positive and negative controls are reviewed and judged to be acceptable.This laboratory is certified under the Clinical Laboratory Improvement Amendments (CLIA-88)as qualified to perform high complexity clinical laboratory testing. MICROSCOPIC DESCRIPTION Microscopic examination is performed on all specimens and the findings areincorporated into the final diagnosis. Please see diagnosis for findings. CONTINUED ON NEXT PAGE R UN DATE: 03/24/24 [facility] PAGE 3 RUN TIME: 1723 Specimen Inquiry RUN USER: INTERFACE S [facility] #: 24:[facility]:[id number] PATIENT: PREET LOOMISSAMMIJordan Raúl #[id number] (Continued) CLINICAL INFORMATION Incomplete uterovaginal prolapse ------- Signed SIGNATURE ON TREVA Carolyn Bradley 03/24/24 1723 END OF REPORT measurement of post-voiding residual urine and/or bladder capacity (PROC) 2024-03-23 11:51:00* Test Item Value Reference Range Interpretation Comme nts (PVR) (test code = (PVR)) 111 [facility] SERUM [id number] 09:55:00* Test Item Value Reference Range Interpretation Comme [facility] HCG SERUM QUAL (test code = HCGQL) SERUM NEGATIVE SCREEN NEGATIVE PROTHROMBIN [id number] 09:33:00* Test Item Value Reference Range Interpretation Comme [facility] PT PATIENT (test code = PTP) 10.1 SECONDS 9.3-12.9 N INTERNATIONAL NORMAL RATIO (test code = INR) 0.90 INR Unit 0.8-1.2 N TARGET INR BY INDICATION Indication INR1. Prophylaxis of venous thrombosis 2.0 - 3.0 (orthopedic surgery), Prophylaxis of venous thrombosis (other than high-risk surgery), Treatment of Deep Vein Thrombosis/Pulmonary Embolism, Prevention of systemic embolism - Tissue heart valves, Acute Myocardial Infarction (to prevent systemic embolism), Valvular heart disease, Acute Myocardial Infarction (to prevent systemic embolism), Valvular heart disease, Atrial Fibrillation, Bileaflet mechanical valve in aortic position.2. Mechanical prosthetic valves (high risk), 2.5 - 3.5 Presence of Lupus Anticoagulant or Antiphospholipid Antibodies, Prevention of systemic embolism - Acute Myocardial Infarction (to prevent recurrent infarct). Comment: MD SHANE ORDERTHROMBOPLASTIN TIME [id number] 09:33:00* Test Item Value Reference Range Interpretation Comme nts THROMBOPLASTIN TIME PARTIAL (test code = PTT) 37.1 SECONDS 26-35 H Comment: MD SHANE ORDERBASIC METABOLIC [id number] 09:11:00* Test Item Value Reference Range Interpretation Comme nts SODIUM (test code = NA) 139 mmol/L 136-145 N POTASSIUM (test code = K) 4.6 mmol/L 3.4-5.0 N CHLORIDE (test code = CL) 102 mmol/L 98-107 N CARBON DIOXIDE (test code = CO2) 33 mmol/L 21-32 H ANION GAP (test code = GAP) 4 GAP calc 4-15 N GLUCOSE (test code = GLU) 95 MG/DL 70-110 N BLOOD UREA NITROGEN (test code = BUN) 11 MG/DL 7-18 N GLOMERULAR FILTRATION RATE (test code = GFR) >=60 max estimate estGFR >60 The Glomerular Filtration Rate is a calculated parameterbased on serum Creatinine, patient age and sex. GFR valuesless than 60 mL/min/1.73 square meters are indicative ofChronic Kidney Disease. Values less than 15 mL/min/1.73square meters indicate Kidney failure. The calculation forGFR is based on the CKD-EPI (202) calculation. This formulais race indifferent and is the recommended formula for GFRby the National Kidney Foundation for Adults.The GFR will not calculate if the sex is unknown or if thepatient's age is <18 years. CREATININE (test code = CREAT) 0.6 MG/DL 0.6-1.0 N CALCIUM (test code = CA) 9.0 MG/DL 8.5-10.1 N URINALYSIS [id number] 09:10:00* Test Item Value Reference Range Interpretation Comme nts UA GLUCOSE DIPSTICK (test co de = DGLUU) NEGATIVE mg/dL NEGATIVE UA BILIRUBIN DIPSTICK (test code = BILU) NEGATIVE NEGATIVE UA KETONE DIPSTICK (test cod e = KETU) NEGATIVE NEGATIVE UA SPECIFIC GRAVITY (test co de = SGU) 1.020 1.005-1.015 A UA BLOOD DIPSTICK (test code = ARCHANA) NEGATIVE NEGATIVE UA PH DIPSTICK (test code = XIMENA) 7.0 5.0-7.0 UA PROTEIN DIPSTICK (test co de = PROU) NEGATIVE NEGATIVE UA UROBILINIOGEN DIPSTICK (test code = URO) NORMAL NORMAL UA NITRITE DIPSTICK (test co de = SUZANNE) NEGATIVE NEGATIVE UA LEUKOCYTE ESTERASE DIPSTI CK (test code = LEUU) NEGATIVE NEGATIVE Urine Specimen Type: Clean CatchCBC W/O [id number] 09:03:00* Test Item Value Reference Range Interpretation Comme nts WHITE BLOOD CELL (test code = WBC) 4.7 K/mm3 3.5-11.0 N RED BLOOD CELL (test code = RBC) 4.82 M/mm3 4.70-6.10 N HEMOGLOBIN (test code = HGB) 14.8 G/DL 10.4-14.9 N HEMATOCRIT (test code = HCT) 44.0 % 31.5-44.1 N MEAN CELL VOLUME (test code = MCV) 91.3 Fl 84.5-98.6 N MEAN CELL HGB (test code = MCH) 30.7 pg 27.0-34.2 N MEAN CELL HGB CONCETRATION ( test code = MCHC) 33.6 G/DL 31.5-34.0 N RED CELL DISTRIBUTION WIDTH (test code = RDW) 11.7 SD 11.5-14.5 N PLATELET COUNT (test code = PLT) 320 K/mm3 150-450 N MEAN PLATELET VOLUME (test c ode = MPV) 9.50 fL 7.0-10.5 N Cervical AndOr vaginal cytology [id number] 00:00:00* Test Item Value Reference Range Interpretation Comme nts diagnosis: (test code = diagnosis:) COMMENT specimen adequacy: (test cod e = specimen adequacy:) COMMENT performed by: (test code = p erformed by:) COMMENT electronically signed by: (t est code = electronically signed by:) COMMENT note: (test code = note:) COMMENT test methodology: (test code = test methodology:) COMMENT HPV aptima (test code = HPV aptima) NEGATIVE negative [facility] W Auto Differential panel - [id number] 00:00:00* Test Item Value Reference Range Interpretation Comme nts WBC (test code = WBC) 4.2 x10e3/uL 3.4-10.8 RBC (test code = RBC) 4.47 x10e6/uL 3.77-5.28 hemoglobin (test code = hemoglobin) 13.3 g/dL 11.1-15.9 hematocrit (test code = hematocrit) 41.7 % 34.0-46.6 MCV (test code = MCV) 93 fL 79-97 MCH (test code = MCH) 29.8 pg 26.6-33.0 MCHC (test code = MCHC) 31.9 g/dL 31.5-35.7 RDW (test code = RDW) 12.0 % 11.7-15.4 platelets (test code = platelets) 310 x10e3/uL 150-450 neutrophils (test code = neutrophils) 43 % not estab. lymphs (test code = lymphs) 50 % not estab. monocytes (test code = monocytes) 4 % not estab. eos (test code = eos) 2 % not estab. basos (test code = basos) 1 % not estab. immature cells (test code = immature cells) Comment neutrophils (absolute) (test code = neutrophils (absolute)) 1.8 x10e3/uL 1.4-7.0 lymphs (absolute) (test code = lymphs (absolute)) 2.1 x10e3/uL 0.7-3.1 monocytes(absolute) (test co de = monocytes(absolute)) 0.2 x10e3/uL 0.1-0.9 eos (absolute) (test code = eos (absolute)) 0.1 x10e3/uL 0.0-0.4 baso (absolute) (test code = baso (absolute)) 0.1 x10e3/uL 0.0-0.2 immature granulocytes (test code = immature granulocytes) 0 % not estab. immature grans (abs) (test c ode = immature grans (abs)) 0.0 x10e3/uL 0.0-0.1 hematology comments: (test c ode = hematology comments:) Comment [facility] free and total panel [Mass/volume] - Serum or Plasma 2024-03-11 00:00:00* Test Item Value Reference Range Interpretation Comme nts testosterone (test code = testosterone) 31 NG/dL 4-50 free testosterone(direct) (t est code = free testosterone(direct)) 3.8 pg/mL 0.0-4.2 [facility] MedicalFollitropin [Units/volume] in Serum or [id number] 00:00:00* Test Item Value Reference Range Interpretation Comme nts FSH (test code = FSH) 65.5 mIU/mL [facility]Comprehensive metabolic 2000 panel - Serum or [id number] 00:00:00* Test Item Value Reference Range Interpretation Comme nts sodium (test code = sodium) 142 mmol/L 136-145 potassium (test code = potassium) 5.0 mmol/L 3.5-5.5 chloride (test code = chloride) 102 mmol/L 98-107 CO2 (test code = CO2) 28 mmol/ L 23-31 glucose (test code = glucose) 88 mg/dL 70-99 BUN (test code = BUN) 13 mg/dL 6-20 creatinine (test code = creatinine) 0.6 mg/dL 0.5-0.9 calcium (test code = calcium) 9.8 mg/dL 8.6-10.4 total protein (test code = total protein) 6.8 g/dL 6.0-8.3 albumin (test code = albumin) 4.5 g/dL 3.5-5.2 total bilirubin (test code = total bilirubin) 0.4 mg/dL 0.0-1.2 alkaline phosphatase (test code = alkaline phosphatase) 88 U/L 44-147 AST (SGOT) (test code = AST (SGOT)) 28 U/L 0-32 ALT (SGPT) (test code = ALT (SGPT)) 25 U/L 0-33 globulin (test code = globulin) 2.3 g/dL 1.7-3.7 A/G ratio (test code = A/G ratio) 2.0 calc. 1.1-2.9 BUN/creatinine ratio (test code = BUN/creatinine ratio) 21.7 calc 10.0-28.0 eGFR (test code = eGFR) 109.965 mL/min/1.73A? >60.000 [facility] MedicalThyrotropin [Units/volume] in Serum or [id number] 00:00:00* Test Item Value Reference Range Interpretation Comme nts TSH (test code = TSH) 1.840 uIU/mL 0.500-4.530 [facility] MedicalTriiodothyronine (T3) Free [Mass/volume] in Serum or Plasma 2024-03-08 00:00:00* Test Item Value Reference Range Interpretation Comme nts free T3 (test code = free T3) 3.0 pg/mL 2.0-4.7 [facility] MedicalDehydroepiandrosterone sulfate (DHEA-S) [Mass/volume] in Serum or [id number] 00:00:00* Test Item Value Reference Range Interpretation Comme nts DHEA-S (test code = DHEA-S) 228.0 ug/dL 98.8-340.0 [facility] - Serum or [id number] 00:00:00* Test Item Value Reference Range Interpretation Comme nts cholesterol (test code = cholesterol) 232 mg/dL 0-200 H triglycerides (test code = triglycerides) 108 mg/dL 10-150 HDL cholesterol (test code = HDL cholesterol) 78 mg/dL >50 HDL risk factor (test code = HDL risk factor) 3.0 calc. VLDL cholesterol (test code = VLDL cholesterol) 22 calc dldl (test code = dldl) 137 mg/dL <100 H [facility] MedicalEstradiol (E2) [Mass/volume] in Serum or [id number] 00:00:00 * Test Item Value Reference Range Interpretation Comme nts estradiol (test code = estradiol) 5.0 pg/mL 6.1-91.9 L [facility] [id number]-Ovtifndkkxrdqb D3+25-Hydroxyvitamin D2 [Mass/volume] in Serum or [id number] 00:00:00* Test Item Value Reference Range Interpretation Comme nts vitamin D III (test code = v itamin D III) 21.3 NG/mL 32.0-100.0 L [facility] Medicalurinalysis, [id number] 08:33:00* Test Item Value Reference Range Interpretation Comme nts Leukocytes (test code = Leukocytes) Negative Nitrite (test code = Nitrite) negative Urobilinogen (test code = Urobilinogen) Normal Protein (test code = Protein) Negative pH (test code = pH) 6.0 Blood (test code = Blood) Negative Specific [place] (test code = Specific [place]) 1.015 Ketone (test code = Ketone) Negative Bilirubin (test code = Bilirubin) Negative Glucose (test code = Glucose) Negative Appearance (test code = Appearance) Clear Color (test code = Color) Yellow [facility]inal[facility], [id number] 07:34:21* Test Item Value Reference Range Interpretation Comme nts Leukocytes (test code = Leukocytes) Negative Nitrite (test code = Nitrite) negative Urobilinogen (test code = Urobilinogen) Normal Protein (test code = Protein) Negative pH (test code = pH) 6.5 Blood (test code = Blood) Negative Specific [place] (test code = Specific [place]) 1.010 Ketone (test code = Ketone) Negative Bilirubin (test code = Bilirubin) Negative Glucose (test code = Glucose) Negative Appearance (test code = Appearance) Clear Color (test code = Color) Yellow [facility] Medicalurinalysis, [id number] 16:35:40* Test Item Value Reference Range Interpretation Comme nts Leukocytes (test code = Leukocytes) 1+ Nitrite (test code = Nitrite) negative Urobilinogen (test code = Urobilinogen) Normal Protein (test code = Protein) Negative pH (test code = pH) 7.5 Blood (test code = Blood) Negative Specific [place] (test code = Specific [place]) 1.010 Ketone (test code = Ketone) Negative Bilirubin (test code = Bilirubin) Negative Glucose (test code = Glucose) Negative Appearance (test code = Appearance) Clear Color (test code = Color) Yellow [employer] MedicalUS ABDOMEN [id number] 14:39:33HISTORY: Hepatomegaly with NOS steatosis. TECHNIQUE: Upper abdominal organs were evaluated in multiple planes withthe patient in multiple different positions, without and with colorimaging. FINDINGS:Liver is enlarged, 20.1 cm, spleen is 11.6 x 4.2 cm, right kidneyis 11.6 x 4.1 x 4.8 cm and left kidney is 10.3 x 5.0 x 4.9 cm in size. Milddiffuse increased echotexture of the liver parenchyma notedwithout anyfocal liver lesions visualized. Cortex of both kidneys range between 11 mmand 15 mm. No hydronephrosis, free fluid in the upper abdomen or aorticaneurysm detected. Visualized portions of the pancreas appear normal.Hepatic and portal venous system appear patent, with hepatopetal portalflow noted. Gallbladder has been removed. Common hepatic duct is 4.5 mm. CONCLUSIONS:1. Hepatomegaly with diffuse hepatic steatosis.2. S/P cholecystectomy. [facility] [place] Results Inft User - 09/11/2020 9:40 AM CDTHISTORY: Hepatomegaly with NOS steatosis.TECHNIQUE: Upper abdominal organs were evaluated in multiple planes withthe patient in multiple different positions, without and with colorimaging.FINDINGS: Liver is enlarged, 20.1 cm, spleen is 11.6 x 4.2 cm, right kidneyis 11.6 x 4.1 x 4.8 cm and left kidney is 10.3 x 5.0 x 4.9 cm in size. Milddiffuse increased echotexture of the liver parenchymanoted without anyfocal liver lesions visualized. Cortex of both kidneys range between 11 mmand 15 mm. No hydronephrosis, free fluid in the upper abdomen or aorticaneurysm detected. Visualized portions of the pancreas appear normal.Hepatic and portal venous system appear patent, with hepatopetal portalflow noted.Gallbladder has been removed. Common hepatic duct is 4.5 mm.CONCLUSIONS:1. Hepatomegaly with diffuse hepatic steatosis.2. S/P cholecystectomy.[facility] Notes INSTRUCTIONS FOLLOWING CORTISONE INJECTIONSYou have just received a Cortisone injection. This regional injection is usedFirst 48 hoursAfter 48 hoursROS:PHYSICAL EXAM:Right LeftHEMOGLOBIN A1C (%)EGFR Date/Time Note Provider Source 2024-12-18 11:34:03 [facility] 2024-12-18 11:34:03 Patient Instructions Brionna Garg MD - 12/18/2024 9:59 AM CDT Images from the original note were not included. to reduce the inflammation (swelling, redness, and irritation) of an injured or sore area. Cortisone is a type of steroid. Unlike oral steroids (those taken by mouth), side effects are unlikely. Side effects can include infection, a pale discoloration or thinning of the skin which can be permanent, flare reaction, and/or elevated blood sugar in diabetics. If you are a diabetic, check your blood sugar levels for the next 48 hours. In some cases, steroid injections can raise blood sugar levels. If this occurs, please notify the physician that is managing your Diabetes FIRST. Then, notify the Orthopedic physician of this occurrence. Following the cortisone injection, you may experience an increase in pain or discomfort. This is not uncommon. If this occurs, apply a cold compress to the area that was injected, 2-3 times a day for 10-15 minutes for 48 hours. Temporary numbness may also be noted of the injected area. This is the effects of the local anesthetic that was used in combination with the cortisone. If you experience numbness or pain, please exercise caution in driving, walking, or lifting heavy objects. If no pain is noted, you may resume your normal daily activities. If you notice any pain or discomfort after the first two days of receiving the cortisone injection, stop using the cold compresses and began the use of warm compresses (heating pas-medium setting), for 15-20 minutes 2-3 times a day. You should never sleep with a heating pad on or apply the heating pad to areas with medication patches or ointments. pain, redness, swelling, or warmth at the injection site past 72 hours following the injection. [facility] 2024-12-18 11:34:03 Brionna Garg MD - 12/18/2024 8:40 AM CDT CHIEF COMPLAINT: Chief Complaint Patient presents with Knee Pain Left knee pain for several years. Patient reports she had a left knee meniscus tear back in 2004 and fracture back in 2020. HPI: Patient is a 49 year old female with a chief complaint(s) of Left knee pain. Pain is located at diffuse knee. Pain has been ongoing for years. Pain is worse with activity. Patient has tired CSI with temporary relief. Associated Symptoms: crepitus/grinding; no numbness or tingling; positive swelling; no skin changes; no weakness; mild decrease in ROM Activity: full ADLs; pain interferes with function/daily activity (no) Previous PCP/provider/other specialties notes reviewed. Past Medical History[1] Past Surgical History: Procedure Laterality Date EXCISION OF GALL BLADDER KNEE SURGERY REPAIR, RECTAL PROLAPSE, DELORME RPR INGUN HERNIA SLIDING ANY AGE 2007 TOTAL ABDOMINAL HYSTERECT W/WO RMVL TUBE OVARY TUMMY SARA 2004 VAGINAL PROLAPSE REPAIR Social History Occupational History Not on file Tobacco Use Smoking status: Never Passive exposure: Never Smokeless tobacco: Not on file Vaping Use Vaping status: Never Used Substance and Sexual Activity Alcohol use: Yes Comment: social Drug use: Not Currently Sexual activity: Yes Partners: Male control/protection: Post Menopausal Negative except as otherwise stated in HPI. Vitals: 12/18/24 0940 Weight: 214 lb (97.1 kg) Height: 5' 9" (1.753 m) PainSc: 09/23 PainLoc: KNEE Body mass index is 31.6 kg/m?. Gait/ Mobility - Normal gait Left knee atrophy or deconditioning noted Palpation: Medial joint line tenderness and Lateral joint line tenderness; Crepitus:Positive ROM: Passive Ext/Flexion (0-140) 0-140 0-130 Active Ext/Flexion (0-140) 0-140 0-120 Special Tests: Ballotable Effusion: positive; Fluid Wave: negative Anterior Drawer: not tested; Kimber: negative; Pivot Shift: not tested Posterior Sag Sign: not tested; Posterior Drawer: not tested; Dial Test: not tested Varus Stress: LCL stable at 0 and 30 degrees Valgus Stress: MCL stable at 0 and 30 degrees Patellar Grind: negative Rosario: negative ; Apley's Compression: not tested; Thessaly: not tested Neurovascular: Intact; sensation intact to light touch Lab Work: Date Value 05/19/2024 5.8 10/08/2021 5.7 Reviewed in setting of possible steroid use Date Value 05/19/2024 0.60 Date Value 05/19/2024 110 Creatinine reviewed in setting of possible NSAID use Imaging: Left knee osteoarthritis with valgus angulation. No fracture or malalignment. Trace left knee joint effusion. Kellgren-Gucci 4 (left anterior/lateral compartments) Assessment/Plan Primary osteoarthritis of left knee Given severity of symptoms today, will proceed with CSI. Also recommend medication as needed and PT/HEP. CSI will assist with participation in exercise. Imaging: Imaging ordered and interpreted by me, discussed with patient. Agree with official read. Procedure: See note. Activity: Activity as tolerated; Therapy: Home exercise program, handout provided Medication: Meloxicam 15mg daily as needed, Medication precautions discussed. Additional work-up: No additional imaging at this time RTC: 4 months for re-evaluation of symptoms Lifestyle modification is advised recurrent effusion, articular damage. Discussed surgical and non surgical options ar the present time the patient would like to proceed with non surgical modalities including steroid injections. The patient's questions were answered and the patient agreed to proceed. Knee was prepped with chlorahexidine and ethyl chloride; then 5mL of 1% plain lidocaine was placed in the superolateral area. Chloraprep was reapplied and an 18 gauge needle was placed through the superolateral aspect of the knee; approximately 15 cc of straw colored fluid was removed. The syringe was changed and then the knee was injected with 1 mL of 40 mg/mL of Depo-Medrol and 4 mL of 1% plain lidocaine. The patient tolerated the procedure without difficulty. Past Medical History: Diagnosis Date GERD (gastroesophageal reflux disease) T [facility] Scheduled Orders Name Type Priority Associated Diagnoses Orde r Schedule ARTHROCENTESIS ASPIR&/INJ MAJOR JT/BURSA W/O US Procedures Routine Primary osteoarthrit is of left knee Ordered: 12/18/2024 Health Maintenance Due Date Last Done Comments COLONOSCOPY 1974 CT Colonography 1974 FIT Tests 1974 Sigmoidoscopy 1974 Mammogram 2014 COVID-19 Vaccine (2 - 2023-2 5 season) 2024 09/09/2020 Pneumococcal Vaccine: 50+ Ye ars (1 of 1 - PCV) 2024 Zoster Vaccines (1 of 2) 2024 Influenza Vaccines (#1) 2025 Cologuard 03/09/2025 03/09/2022, 03/09/2022 Colorectal Cancer Screening 03/09/2025 Physical Exam 05/19/2025 05/19/2024, 07/2024, 12/31/2022, Additional history exists Tdap Vaccines 12/27/2028 12/27/2018, 05/17/2007 Lipid Panel 05/19/2029 05/19/2024, 12/16, 10/08/2021, Additional history exists RSV Vaccines (1 - 1-dose 75+ series) 20[facility] [id number] 11:34:03 Diagnosis Primary osteoarthritis of left knee - Primary Primary localized osteoarthrosis, lower leg BMI 31.0-31.9,adult Body Mass Index 31.0-31.9, adult [place] [id number] 11:34:03 [place] [address]-08-04 09:40:38 Chief Complaint Patient presents with Knee Pain Left knee pain for several years. Patient reports she had a left knee meniscus tear back in 2004 and fracture back in 2020. Jeremy Wolf MA [id number] 08:32:22 Chief Complaint Patient presents with Heel Pain Right heel pain x 5 months [phone] (home) Devora Sparks MA T [facility] Ypowea3660-07-30 12:54:20 Chief Complaint Patient presents with Follow-up Follow up on weight management Fatimah Reece MA T [place] [id number] 14:26:12 Chief Complaint Patient presents with Follow-up Follow up on weight management Fatimah Reece MA [place] Jovjwl5730-41-57 14:42:31 Chief Complaint Patient presents with Follow-up Follow up on weight management Fatimah Reece MA [place] Aivmvd4623-91-31 08:00:32 Chief Complaint Patient presents with Physical Patient is fasting. No other issues to discuss Fatimah Reece MA [facility] AnnaOsito [id number] 08:54:00 [facility] ([facility]) Hospitalist History Physical REPORT#:[id number] REPORT STATUS: Signed REPORT INITIALIZATION DATE:03/29/24 TIME:853 PATIENT: DARIEN LOOMIS UNIT #: [id number] ROOM/BED: [place] [address] : [birth year] AGE: 48 SEX: F ATTEND: Antony Harrington MD ADM AUTHOR: Antony Harrington MD REPT SERVICE DT/TIME: 03/20/24 0854 * ALL edits or amendments must be made on the electronic/computer document * History of Present Illness HPI Chief complaint: Status post surgery by HPI: 48-year-old female with no significant past medical history who underwent RTLH BSO, LSCP, posterior wall repair, perineorrhaphy, tvt-O, cystoscopy for 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 Thompson was admitted for postoperative monitoring. Pain controlled well History Past Medical Surgical Hx Additional medical history: No significant past medical history Additional surgical history: No significant past surgical history Family History Family history: Reports: Hypertension. Social History Smoking status for patients 13 years old or older: Never Smoker Medication/Allergy-Vaccine Hx Medications: Home Medications: CHOLECALCIFEROL (VITAMIN D3) (VITAMIN D3) 1,000 UNITS PO DAILY ACETAMINOPHEN/CODEINE (TYLENOL WITH CODEINE #3 300/30 MG) 1 TAB PO Q4H PRN PRN ACUTE PAIN MDD 6 Allergies: Coded Allergies: No Known Allergies (03/17/24) Review of Systems Free Text ROS Notes Free Text ROS Notes: Constitutional: Reports: generalized weakness. Skin: Denies: rash. Allergy/Immun: Denies: rhinorrhea, sneezing. Eyes: Denies: visual loss/blurred. ENT: Denies: earache, nasal congestion. Respiratory: Denies: non productive cough. Cardiovascular: Denies: chest pain, palpitations. GI: Denies: diarrhea, nausea. : Denies: dysuria. Musculoskeletal: Reports: arthritis. Denies: extremity pain. Heme: Denies: bleeding. Endocrine: Denies: polydipsia. Neuro: Reports: dizziness, gait problem, lightheaded, spinning sensation. Psych: Reports: anxiety. All systems rev neg: except as noted OBJECTIVE VS/I O: Last Documented: Result Pulse Ox 97 B/P 95/60 B/P Mean 72.1 Temp 98.1 Pulse 72 Resp 14 O2 Delivery Room air O2 Flow Rate 2 Patient Weight and BMI Weight (kg): 100.000 BMI: 32.6 Free Text PE Notes Free Text PE Notes: Physical Exam General appearance: alert, awake, oriented HEENT : normocephalic ,Atraumatic Eyes: Eyes normal inspection. ENT: Dry mucous membranes present. Neck: Normal inspection. Neck supple. CVS: Normal heart rate and rhythm. Heart sounds normal. Respiratory: No respiratory distress. Breath sounds normal. Abdomen: Soft and nontender. Genitourinary: no bladder distention Back: Normal inspection. Skin: Skin warm. Normal skin color. No rash. Extremities: No lower extremity edema. Neuro: Oriented X 3. No motor deficit No generalized lymph adenopathy Psych normal affect Diagnosis, Assessment Plan Free Text A P: Status post RTLH BSO, LSCP, posterior wall repair, perineorrhaphy, tvt-O, cystoscopy Pain control Monitor closely on telemetry Appreciate help from [facility] Possible DC in a.m. GI/DVT prophylaxis Advanced directive full code Patient was seen and examined on 03/20/2024 This note is for the encounter on the day 03/20/2024 at 0[address] [facility] #: [id number] END OF REPORT [id number] 10:58:00 [facility]) Hospitalist Discharge Summary REPORT#:[id number] REPORT STATUS: Signed REPORT INITIALIZATION DATE:03/21/24 TIME:105 PATIENT: DARIEN LOOMIS UNIT #: [id number] ROOM[address]BED: [address] : [birth year] AGE: 48 SEX: F ATTEND: Antony Harrington MD ADM AUTHOR: Antony Harrington MD REPT SERVICE DT/TIME: 03/21/24 1058 * ALL edits or amendments must be made on the electronic/computer document * General Information Discharge date: 03/21/24 Discharge diagnosis: RTLH BSO, LSCP, posterior wall repair, perineorrhaphy, tvt-O, cystoscopy Hospital course: 48-year-old female with no significant past medical history who underwent RTLH BSO, LSCP, posterior wall repair, perineorrhaphy, tvt-O, cystoscopy for 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 Thompson was admitted for postoperative monitoring. Pain controlled well He responded well to treatment and is being discharged to home today in a stable condition with an advise to follow up with PCP in 1 week and also with Dr Thompson in 1 week Med Rec Med Rec Discharge meds: Continue taking these medications: CHOLECALCIFEROL (VITAMIN D3) (VITAMIN D3) 25 MCG (1,000 UNIT) CAP 1,000 UNITS ORAL DAILY. Start taking the following new medications: ACETAMINOPHEN/CODEINE (TYLENOL WITH CODEINE #3 300/30 MG) 300 MG-30 MG TAB 1 TABLET ORAL EVERY 4 HOURS NEEDED. as needed for ACUTE PAIN not to exceed 6 per day Days = 7 Qty = 15 No Refills Objective VS/I O Last Documented: Result Date Time Pulse Ox 97 03/21 1111 B/P 95/60 03/21 1111 B/P Mean 72.1 03/21 1111 Temp 98.1 03/21 1111 Pulse 72 03/21 1111 Resp 14 03/21 1111 O2 Delivery Room air 03/21 0359 O2 Flow Rate 2 03/20 2004 Physical Exam General appearance: alert, awake, oriented HEENT : normocephalic ,Atraumatic Eyes: Eyes normal inspection. ENT: Dry mucous membranes present. Neck: Normal inspection. Neck supple. CVS: Normal heart rate and rhythm. Heart sounds normal. Respiratory: No respiratory distress. Breath sounds normal. Abdomen: Soft and nontender. Genitourinary: no bladder distention Back: Normal inspection. Skin: Skin warm. Normal skin color. No rash. Extremities: No lower extremity edema. Neuro: Oriented X 3. No motor deficit No generalized lymph adenopathy Psych normal affect Discharge Instructions PCP Discharge to: Home/Self Care Additional Discharge Routines: PCP Follow-Up, Auditor/Quality Follow-Up Diet: Resume Home Diet/Feeds Discharge management: greater than 30 mins Follow-up Appointments PCP follow-up: PCP: Reggie Drake DO PCP follow up timeframe: In 1-2 weeks Consulting provider 1: Provider 1: Rachel Thompson MD Specialty: Gynecology Consult follow up timeframe: In 1-2 weeks at [address] [facility] #: [id number] END OF REPORT [id number] 22:09:[id number] [facility] [address] [place] [address] PATIENT NAME: DARIEN LOOMIS ADMIT DATE: 03/20/24 ACCOUNT NO: [id number] ROOM NO: L.S214 AGE: 49 REPORT TYPE: OPERATIVE REPORT SEX: F ADMITTING PHYSICIAN: Antony Harrington MD ATTENDING PHYSICIAN: Antony Harrington MD OPERATION DATE: 03/20/2024 PREOPERATIVE DIAGNOSES: Incomplete uterovaginal prolapse, stress urinary incontinence, secondary amenorrhea. POSTOPERATIVE DIAGNOSES: Incomplete uterovaginal prolapse, stress urinary incontinence, secondary amenorrhea, stage II anterior and posterior wall prolapse, uterine prolapse. PROCEDURES PERFORMED: Robotic-assisted total laparoscopic hysterectomy, bilateral salpingo-oophorectomy, laparoscopic sacral colpopexy, posterior repair, perineorrhaphy and mid urethral sling (TVT-O), cystoscopy. SURGEON: Rachel Thompson MD CRM SYSTEM ADMINISTRATOR: Yumi Alston. URINE OUTPUT: 400 mL. ESTIMATED BLOOD LOSS: 100 mL. FLUIDS: 800 mL. SPECIMENS: Uterus, tubes and ovaries. COMPLICATIONS: No complications. DRAINS: Hawthorne catheter. IMPLANTS: Upsylon Y-mesh and TVT-O sling. FINDINGS: POP-Q-0,+1, -3, 4.5 moderate 8, 0,+1, -1. After repair, there was excellent reduction in the posterior wall on proximal enterocele and suspension of the posterior vaginal cuff and rectovaginal septum and the vaginal apex at the vaginal vault. Anterior wall was significantly lifted as well to the point at -2 once the paravaginal defects were corrected. Cystoscopy showed both patent ureteric orifices. No evidence of any trauma to the bladder or ecchymosis or foreign body. Intraoperatively, the patient had presence of significant abdominal wall scar and some sigmoid adhesions to the left lateral wall at the pelvic brim, but no other adhesions. Minimal amount of endometriosis on the on the peritoneum, which was also excised and PATIENT NAME: DARIEN LOOMIS included with the specimen. INDICATIONS: The patient is a 48-year-old presented with prolapse, evaluated with ultrasound cystoscopy. Urodynamics found to have occult ANAM. No tumors in the bladder or abnormal anatomy. Urodynamics showed occult ANAM. She was counseled on a pessary vaginal repair with uterine preservation and laparoscopic repair with uterine preservation and removal. She was consented for all the procedures as the patient wanted to have the procedure with the longest lasting repair with minimal recurrence and so she chose a laparoscopic sacral colpopexy. She was counseled very well on all the complications and risks of this procedure and consented and brought to the hospital. She was accompanied by her and the review of H and P was done in the preoperative area. DESCRIPTION OF PROCEDURE: After she was consented, she was taken back to the OR. After she was placed in the dorsal lithotomy position after general anesthesia was given, pelvic exam was performed and the abdomen prepped with ChloraPrep. Vulva, vagina, and perineum with Betadine and medial thighs as well and draped in a sterile fashion. SCDs were started. Timeout was done. Positioning was checked. The patient was grounded and procedure started. In the preoperative evaluation on the urodynamics treatment, she had a high PVR over 300 indicating voiding dysfunction. On further questioning, the patient has a history of ANAM, which had resolved after the prolapse was taken more prominent and therefore, we consented her for a sling procedure. Going back to the procedure, total laparoscopic hysterectomy, bilateral salpingo-oophorectomy: Speculum was placed to expose the cervix vaginally and held with a single tooth tenaculum, dilated to 16-Zambian 3.5 cm cup manipulator introduced and fixed in place and Hawthorne was used to drain the bladder and left to straight gravity drainage bag. This area was draped. Supraumbilical incision was made in the midline with 11-blade. Fascia was identified, incised, tagged with 0 Vicryl sutures. Peritoneum entered bluntly. S retractors were placed. Sepulveda introduced after adequate insufflation, site of entry was checked and was unremarkable. Small adhesions above the level of the umbilicus were present surgery. Left upper quadrant 810 AirSeal trocar and 8 robotic trocar on the left lateral most aspect and two right-sided 8 trocars were placed without any problems under direct vision. She was placed in [facility]. The robot was docked from the patient's right side. Camera arm was attached and targeting was complete. All instruments were introduced and this advanced into the mid pelvis under direct visualization and the ports were burped. I went over the console and started the procedure after taking down the adhesions of the left colon from the left sidewall at the pelvic brim, the IP ligament was well exposed. Monopolar scissors were used along the broad ligament, superior and inferior to the round ligament and incision was made parallel to the round and broad ligament opened up the mesosalpinx parallel to the IP and the medial leaf of the broad ligament was opened as well between the ureter and the IP and extended. The vessel sealer was then taken, the IP PATIENT NAME: DARIEN LOOMIS ligament was taken down as well as the round ligament. The peritoneum dissected towards the vessels anteriorly and posteriorly with monopolar scissors. Similar dissection performed on the opposite side, taking down the peritoneal windows to the IP as well as the round ligament exactly in the identical fashion, then taking the pedicles also in a similar fashion. Anterior and posterior broad ligament on the right side were also opened up to connect the bladder flap and then posteriorly to make an incision down along the posterior aspect of the flap with monopolar scissors. Then, broad ligament was cauterized and cut on both sides and vessels were cauterized and cut. Cardinal ligaments were cauterized and cut as well and circumferential colpotomy performed with the monopolar hook blade and specimen detached and pulled out through the vagina. Thorough irrigation and suction was performed. There was significant laxity of the bladder and vaginal . The vagina was closed with the help of continuous running 2-0 V-Loc suture from right side to the left and then back imbricating this left back to the right anterior cut. Sacral colpopexy: The anterior vaginal wall was retracted with a vaginal retractor, it was cylindrical, first layer had to use a slight dissection was difficult anteriorly. The vesicovaginal space was entered and bladder dissected superiorly. It was difficult to get into the plane most of the places as the central portion of the anterior vaginal wall appeared to be narrow and round ligament of the vagina, after reducing the prolapse, vaginal length was approximately 8-9 cm, but not much width. Anterior wall was dissected 3.5 cm after the two layer closures in the midline. It appeared to be that I was at the trigone, there was cauterization laceration superficially of the detrusor fibers, which were preserved carefully and the bladder was filled and drained couple of times in order to ensure that the integrity was intact into the bladder with at least 300 mL of normal saline for testing. When the bladder was drained, posterior dissection was performed opening the peritoneum from one uterosacral to the other and left to right and centrally tissue consistent with vaginal wall. The rectum was dropped down of the posterior length of 7 cm anterior to the console. Next, sacral promontory was identified at the level of the pelvic brim and the peritoneum picked up medial to the left and the right knee was incised sharply and dissection performed down to the sacral promontory. The sacral vessels were seen. The central middle sacral vein was solid, cauterized with the bipolar. Then, once the anterior longitudinal ligament was cleaned up, then, peritoneum dissected down all the way to the uterosacral and the across it to connected to the posterior dissection. The tract was expanded by blunt traction. There was not much bleeding at this point. The mesh that was cut to 3.5 cm posterior arm was brought in, the anterior arm was attached intact. We used 2-0 Vicryl sutures and posteriorly nine 2-0 Vicryl sutures each. There was excellent apposition of the mesh to the vaginal wall without any folds and this wide portion was tacked to the anterior longitudinal ligament with the help of 0 Ethibond sutures x3 to the right side and one on the left side of the lumbosacral vessels. There was excellent support, it was measured and the peritoneum was checked and made loose enough. There was good reduction. The peritoneum closed with the help of continuous running 3-0 Vicryl and all the bowel that was held in traction was all released PATIENT NAME: DARIEN LOOMIS and there was no evidence of any electrical, mechanical or thermal injury to the uterus or any bowel injury. Bladder was intact. After it was sealed and dry and intact. All the trocars were removed under direct vision. Gas was desufflated. The patient was flattened out and umbilical incision repaired with 3-0 Vicryl sutures tied to each other and all skin incisions closed with interrupted 4-0 Monocryl. Midurethral sling, mid urethra was picked up with 2 Allis clamps on either side of the midline injected with dilute vasopressin 10 mL and 1.5 cm incision was made in the midline. Dissection carried to the ipsilateral obturator space and obturator membrane was perforated without drilling a hole in the vaginal side and then the inferior pubic ramus, both dissections were done on the right and left using the and then there was a TVT-O Abbrevo device , but then they found a full length TVT-O kit, was removed carefully without much bleeding and then the TVT-O placed in the and the peritoneal incision was then extubated and taken to the lateral cabrera on the right side and similar pass on the left side. Tensioning in the middle with the help of Metzenbaum scissors and the plastic sheath was cut and pulled out the tensioning and the mesh. The fascia at the skin was closed with Dermabond. Vaginal epithelium subepithelium and connective tissue was placed in the help of continuous running 3-0 Vicryl suture. Hawthorne was removed. Cystoscopy was performed. Excellent jets of urine from both ureteric orifices. No evidence of any trauma or foreign body in the bladder. Bladder was then catheterized and drained. Posterior repair of and posterior wall in the lower one-third was injected. The last 2 posterior vaginal wall in the vestibule were injected and the perineum was well, it demonstrated mild epithelial incision was made to the skin. The wound was dissected and removed to expose the underlying connective tissue and stimulate the vaginal epithelium was dissected and then fascia was identified and opened up and from the vaginal epithelium all the way it tacked to the distal portion of the posterior mesh. Once this was done, then the peritoneum was also opened up and dissected visualized. There was an avulsion basically from the left side. A continuous running 2-0 Vicryl suture was placed on this and then the perineal body reconstruction was also done with the help of 2-0 Vicryl suture in a continuous running fashion. Then, the same suture was used to close the rest of the incision in a horizontal mattress fashion on inside the vagina. The patient tolerated this procedure well. ESTIMATED BLOOD LOSS: 100 mL. Rectal exam was negative. The patient was recovered from anesthesia and taken to PACU in stable condition. Her and mother were debriefed. Dictated By: Rachel Thompson MD Date Dictated: 03/20/2024 22:09:06 Date Transcribed: 03/21/2024 02:23:13 SHREYAS/YOU/THU/EVI PATIENT NAME: EBONIEDARIEN Receipt ID: [id number] Authenticated by Rachel Thompson MD On 05/22/2024 12:18:32 PM at 1218 PATIENT NAME: EBONIEDARIEN 18:44:00 [facility] ([facility]) Brief Op Note REPORT#:[id number] REPORT STATUS: Signed REPORT INITIALIZATION DATE:03/20/24 TIME:184 PATIENT: EBONIEDARIEN UNIT #: [id number] ROOM/BED: : 74 AGE: 48 SEX: F ATTEND: Antony Harrington MD ADM AUTHOR: Rachel Thompson MD REPT SERVICE DT/TIME: 03/20/241843 * ALL edits or amendments must be made on the electronic/computer document * Op/Inv Proc Note - Brief Pre-procedure diagnosis: Stage 3 post wall and anteriro wall and uterine prolapse ANAM, secondary Amenorrhea Post-procedure diagnosis: Stage 2 anterior and posterior wall prolapse, uterine prolapse, ANAM Procedures performed: RTLH BSO, LSCP, posterior wall repair, perineorrhaphy, tvt-O, cystoscopy Primary Surgeon: diamond Gas Combustion Engineer(s): yumi alston Anesthesia: general anesthesia Findings: 0/0/-3/4.5/mod/8/0/+1/-1, proximal posterior wall enterocele, cysto patent ureters, no foreign body or injury, cuff 2 layer vlock closure, 3.5 ant delmy, 7cm post arm for y mesh, sacral disssection unremarkable, ant dissection complex , Complications: none Estimated blood loss in ml's: 100 Specimens removed/altered: ut willian ov and tubes Drain(s): Hawthorne Catheter Placed Implant(s): upsylon and TVT-O Fluids: 800 Urine output: 400 Approach: laparoscopic, robotic and vag Wound class: clean/contaminated Disposition: MEDSURG Counts: Sponge count: correct Instrument count: correct Needle count: correct at 1851 RPT #: [id number] END OF REPORT [id number] 18:41:00 [facility] ([facility]) Post Anesthesia Evaluation REPORT#:[id number] REPORT STATUS: Signed REPORT INITIALIZATION DATE:03/20/24 TIME:1840 PATIENT: DARIEN LOOMIS UNIT #: [id number] ROOM/BED: : 74 AGE: 48 SEX: F ATTEND: Antony Harrington MD ADM AUTHOR: Gabriella Martin MD REPT SERVICE DT/TIME: 03/20/24 1841 * ALL edits or amendments must be made on the electronic/computer document * Post Anesthesia Evaluation Anes. changes from pre-op eval ORM Surgeries: Surgery Date and Time: 03/20/2024 1230 Primary Procedure: ROBOT XI HYSTERECTOMY,BILATERAL Secondary Procedures: LAPAROSCOPIC ROBOTIC ASSISTED TRANSOBTURATOR MID-URETHRAL SLING, CYSTOSCOPY Anesthetic: GETA Date: 03/20/24 Level of consciousness: patient awake, able to answer questions, participate in this eval. Neurological assessment: Neuromuscular block: resolved as expected Musculoskeletal: moves all extremities, sensation intact, returned to pre- status Vital signs: Last Documented: Result Date Time Pulse Ox 98 03/20 1023 B/P 117/58 03/20 1023 O2 Delivery Room air 03/20 1023 Temp 36.3 03/20 1023 Pulse 60 03/20 1023 Resp 18 03/20 1023 Cardiovascular: CV system stable, vital signs stable Respiratory/Airway: respiratory system stable Pain: adequately controlled Hydration: adequate, euvolemic Temp status: greater than 96.8F, normothermic Presence of N/V: no Anesthesia complications: no Other changes requiring f/u: none Conclusions: no apparent anes. issues Additional comments: Patient stable for discharge from the PACU to phase II of care. at 1842 RPT #: [id number] END OF REPORT [id number] [facility] [id number] [place] [id number] PATIENT NAME: DARIEN LOOMIS ADMIT DATE: 03/20/24 ACCOUNT NO: [id number] ROOM NO: [facility] AGE: 48 REPORT TYPE: eELECTROCARDIOGRAM SEX: F ADMITTING PHYSICIAN: Antony Harrington MD ATTENDING PHYSICIAN: Antony Harrington MD Order: [id number] Test Reason : PREOP Test Date/Time Stamp: WedMar 17 2024 08:54:48 Blood Pressure : / mmHG Vent. Rate : 066 BPM Atrial Rate : 066 BPM P-R Int : 140 ms QRS Dur : 082 ms QT Int : 414 ms P-R-T Axes : 067 043 058 degrees QTc Int : 434 ms Normal sinus rhythm Normal ECG No previous ECGs available Confirmed by Ayla Marquis ([id number]) on 03/21/2024 11:26:21 AM Referred By: Rachel Thompson Confirmed by:Ayla Marquis at 1126 PATIENT NAME: DARIEN LOOMIS 08:29:08 Chief Complaint Patient presents with Vaginal Problem New pt ball coming out of vagina ,vaginal discomfort Corinna Montana MA II [facility]
[2025-02-14 14:28] LABS: Absolute Lymphocytes (CBC) 2.2 K/uL (0.7-4.9); Hematocrit 42.0 % (36.0-45.0); Hemoglobin 13.7 g/dL (12.0-15.0); MCH 29.5 pg (27.0-35.0); MCHC 32.6 g/dL (32.0-36.0); MCV 90.6 fL (80-100); MPV 8.5 fL (7.6-11.3); Nucleated RBC Absolute Count 0.0 (0-0); Nucleated Red Blood Cells % 0.0 % (0-0); RBC Red Blood Cell Count 4.63 M/uL (3.86-4.86); White Blood Count 7.50 thou/uL (4.3-10.9)
[2025-02-14] MEDS ORDERED: ONDANSETRON 4 MG/2 ML VIAL ONE (14:34)
[2025-02-14] MEDS ORDERED: MORPHINE 4 MG/ML SYR ONE (14:35)
[2025-02-14] MEDS ORDERED: NA CHLORIDE 0.9% 1,000 ML ONE (14:35)
--- NOTE | 2025-02-14 14:44 | RAD REPORT ---
EXAMINATION: ONE VIEW CHEST XR CLINICAL INDICATION: Female, 49 years old.,CHEST PAIN TECHNIQUE: Frontal chest projection is submitted. Examination is limited by patient positioning and t echnique. COMPARISON: 11/15/2019 FINDINGS: The lungs are grossly clear although suboptimal inspiratory effort somewhat limits evaluation. No pn eumothorax or sizable effusion. The heart is normal in size. Mediastinal contours are unremarkable. IMPRESSION: No acute intrathoracic abnormalities.
[2025-02-14 14:48] LABS: Anion Gap 6.1 mEq/L (5.0-15.0); BUN Blood Urea Nitrogen 15.0 mg/dL (7-18); Glucose Level 87.0 mg/dL (74-106); Potassium 4.1 mEq/L (3.5-5.1); Troponin High Sensitivity 3.2 pg/mL (<58.9)
--- NOTE | 2025-02-14 16:44 | ER ---
Nurse's Notes [facility] Name: dAriana Bunn Age: 49 yrs Sex: Female : 1975 Arrival Date: 02/14/2025 Time: 13:55 Bed 5 Private MD: Diagnosis: Chest pain, unspecified Presentation: 02/14 14:01 Chief complaint: Patient states: SHE BEGAN HAVING CP AT 9 AM, WENT TO THE URGENT CARE, dd2 WAS GIVEN ASA 324 MG, EKG AND ADVISED TO COME TO THE ER. PT REPORTS PAIN RADIATES TO HER LT ARM AND LT UPPER BACK. Coronavirus screen: At this time, the client does not indicate any symptoms associated with coronavirus-19. Ebola Screen: No symptoms or risks identified at this time. Initial Sepsis Screen: Does the patient meet any 2 criteria? No. Patient's initial sepsis screen is negative. Does the patient have a suspected source of infection? No. Patient's initial sepsis screen is negative. Risk Assessment: Do you want to hurt yourself or someone else? Patient reports no desire to harm self or others. Onset of symptoms was February 14, 2025 at 09:00. 14:01 Method Of Arrival: Ambulatory dd2 14:01 Acuity: NAVYA 3 dd2 Triage Assessment: 14:01 General: Appears uncomfortable, Behavior is calm, cooperative, appropriate for age. dd2 Pain: Complains of pain in chest Pain radiates to left arm. Cardiovascular: Reports chest pain, shortness of breath. Historical: - Allergies: 14:01 No Known Allergies; dd2 - PMHx: 14:01 Prediabetic; dd2 - PSHx: 14:01 abdominoplasty; Cholecystectomy; left knee surgery; right inguinal hernia repair; dd2 - Immunization history:: Adult Immunizations unknown. - Infectious Disease History:: Denies. Screenin:15 [facility] ED Fall Risk Assessment (Adult) History of falling in the last 3 months, db including since admission No falls in past 3 months (0 pts) Confusion or Disorientation No (0 pts) Intoxicated or Sedated No (0 pts) Impaired Gait No (0 pts) Mobility Assist Device Used No (0 pt) Altered Elimination No (0 pt) Score/Fall Risk Level 0 - 2 = Low Risk Oriented to surroundings, Maintained a safe environment. Abuse screen: Denies threats or abuse. Denies injuries from another. Nutritional screening: No deficits noted. Tuberculosis screening: No symptoms or risk factors identified. Assessment: 14:15 Reassessment: Patient appears in no apparent distress at this time. Patient and/or db family updated on plan of care and expected duration. Pain level reassessed. Patient is alert, oriented x 3, equal unlabored respirations, skin warm/dry/pink. 15:08 Reassessment: No changes from previously documented assessment. Patient is alert, bp oriented x 3, equal unlabored respirations, skin warm/dry/pink. Vital Signs: 14:01 BP 121 / 62; Pulse 63; Resp 16; Temp 98.2; Pulse Ox 100% ; Weight 97.07 kg; Pain 6/10; dd2 14:11 BP 112 / 72; Pulse 71; Resp 18; Pulse Ox 100% on R/A; db 15:07 BP 106 / 64; Pulse 56; Resp 18; Pulse Ox 98% ; bp 16:00 BP 103 / 67; Pulse 52; Resp 14; Pulse Ox 99% ; db 14:01 Pain Scale: Adult dd2 ED Course: 13:59 Patient arrived in ED. cj3 14:00 [facility] 14:00 Sal Figueroa DO is Attending Physician. dr5 14:01 Arm band placed on right wrist. dd2 14:02 Oleksandr Hernandez, RN is Primary Nurse. bp 14:05 Triage completed. dd2 14:16 Patient has correct armband on for positive identification. Bed in low position. Call db light in reach. Side rails up X 1. Client placed on continuous cardiac and pulse oximetry monitoring. NIBP monitoring applied. monitor worker on. Pulse ox on. NIBP on. Warm blanket given. Pillow given. 14:17 EKG done, by ED staff, reviewed by Rohan ODEN. ts3 14:17 Initial lab(s) drawn, by labor and delivery nurse, sent to lab. Inserted saline lock: 20 gauge in right ts3 antecubital area, using aseptic technique. Blood collected. Flushed with 10 mL NS. 14:38 XRAY Chest (1 view) In Process Unspecified. EDMS Administered Medications: 14:30 Drug: morphine IVP or IV 4 mg IVP once over 4 mins Route: IVP; Infused Over: 4 mins; bp Site: right antecubital; 17:03 Follow up: Response: No adverse reaction bp 14:30 Drug: Ondansetron IVP 4 mg IVP once; over 2 minutes Route: IVP; Site: right antecubital;bp 17:03 Follow up: Response: No adverse reaction bp 14:30 Drug: NS 0.9% IV 1000 ml IV at 1000 ml once; to be given as a bolus over 60 minutes bp Route: IV; Rate: 1000 ml; Site: right antecubital; 17:03 Follow up: IV Status: Completed infusion bp Medication: 14:15 VIS not applicable for this client. db Outcome: 16:43 Discharge ordered by . dr5 17:03 Patient left the ED. bp Signatures: Dispatcher [employer] EDMS Oleksandr Hernandez, RN RN bp Chel Crisostomo RN RN db EVAN CASTILLO RN RN dd2 Rohan Ely, HAND TUFTER-C [facility]5 Areli Foy 3 Marie Floyd 3
--- NOTE | 2025-02-14 16:44 | EDPHYS ---
Physician Documentation [facility] Name: Adriana Bunn Age: 49 yrs Sex: Female : 1975 Arrival Date: 02/14/2025 Time: 13:55 Bed 5 Private MD: ED Physician Sal Figueroa HPI: 02/14 19:19 This 49 yrs old Female presents to ER via Ambulatory with complaints of Chest dr5 Pain. 19:19 Onset: The symptoms/episode began/occurred acutely. dr5 19:20 Patient is a 49-year-old female with history of prediabetes coming in with chest pain dr5 that started having chest pain radiating to left arm that started this morning. Patient reports that she went to outside urgent care and had EKG done and given 324 of chewable aspirin.. Historical: - Allergies: 14: No Known Allergies; dd2 - PMHx: 14: Prediabetic; dd2 - PSHx: 14:01 abdominoplasty; Cholecystectomy; left knee surgery; right inguinal hernia repair; dd2 - Immunization history:: Adult Immunizations unknown. - Infectious Disease History:: Denies. ROS: 19:20 Constitutional: as per hpi dr5 Exam: 19:20 Constitutional: This is a well developed, well nourished patient who is awake, alert, dr5 and in no acute distress. Head/Face: Normocephalic, atraumatic. Eyes: Pupils equal round and reactive to light, extra-ocular motions intact. Lids and lashes normal. Conjunctiva and sclera are non-icteric and not injected. Cornea within normal limits. Periorbital areas with no swelling, redness, or edema. Neck: Trachea midline, no thyromegaly or masses palpated, and no cervical lymphadenopathy. Supple, full range of motion without nuchal rigidity, or vertebral point tenderness. No Meningismus. Chest/axilla: Normal chest wall appearance and motion. Nontender with no deformity. No lesions are appreciated. Cardiovascular: Regular rate and rhythm with a normal S1 and S2. Normal PMI, no JVD. No pulse deficits. Respiratory: Lungs have equal breath sounds bilaterally, clear to auscultation. No rales, rhonchi or wheezes noted. No increased work of breathing, no retractions or nasal flaring. Abdomen/GI: Soft, non-tender, non-distended Back: No spinal tenderness. No costovertebral tenderness. Full range of motion. Skin: Warm, dry with normal turgor. Normal color with no rashes, no lesions, and no evidence of cellulitis. MS/ Extremity: Pulses equal, no cyanosis. Neurovascular intact. Full, normal range of motion. Neuro: Awake and alert, GCS 15, oriented to person, place, time, and situation. Cranial nerves II-XII grossly intact. Motor strength 5/5 in all extremities. Sensory grossly intact. Cerebellar exam normal. Normal gait. Vital Signs: 14:01 BP 121 / 62; Pulse 63; Resp 16; Temp 98.2; Pulse Ox 100% ; Weight 97.07 kg; Pain 6/10; dd2 14:11 BP 112 / 72; Pulse 71; Resp 18; Pulse Ox 100% on R/A; db 15:07 BP 106 / 64; Pulse 56; Resp 18; Pulse Ox 98% ; bp 16:00 BP 103 / 67; Pulse 52; Resp 14; Pulse Ox 99% ; db 14:01 Pain Scale: Adult dd2 MDM: 14:00 Medical Screening Exam initiated dr5 19:20 Differential diagnosis: viral Infection, bacterial infection, STEMI, NSTEMI, anemia, dr5 acute kidney injury. Data reviewed: vital signs, nurses notes, lab test result(s), cardiac enzymes, troponin i, CBC, white blood cell count, hemoglobin, hematocrit, platelets, electrolytes, sodium, potassium, chloride, serum bicarbonate, BUN, creatinine, serum glucose, EKG, radiologic studies, plain films. Consideration of Admission/Observation Escalation of care including admission/observation considered. Escalation considered patient found to have elevated troponin or chest pain did not resolve. I considered the following discharge prescriptions or medication management in the emergency department I discussed and recommended Over The Counter medications, Medications were administered in the Emergency Department. See MAR. Independent interpretation of the following test(s) in the Emergency Department X-Ray: My interpretation is Independent interpretation of x-ray does not reveal pneumonia or fracture. Historians other than the Patient: Spouse/Significant Other: at bedside. Care significantly affected by the following Social Determinants of Health: Poor access to healthcare and/or lack of insurance, Poor access to transportation, Problems related to employment. Scoring Tools HEART Score: History: ECG: Age: Risk Factors: Troponin: Total Score = 2. Counseling: I had a detailed discussion with the patient and/or guardian regarding the historical points, exam findings, and any diagnostic results supporting the discharge/admit diagnosis, the presence of at least one elevated blood pressure reading (>120/80) during this emergency department visit, lab results, radiology results, the need for outpatient follow up, for definitive care, a family practitioner, to return to the emergency department if symptoms worsen or persist or if there are any questions or concerns that arise at home. Medication response: Response to treatment: the patient's symptoms have resolved after treatment. Special discussion: Based on the patient's history, exam, and Dx evaluation, there is no indication for emergent intervention or inpatient Tx. It is understood by the patient/guardian that if the Sx's persist or worsen they need to return immediately for re-evaluation. I discussed with the patient/guardian in detail that at this point there is no indication for admission to the hospital. It is understood, however, that if the symptoms persist or worsen the patient needs to return immediately for re-evaluation. Based on the history and exam findings, there is no indication for further emergent testing or inpatient evaluation. I discussed with the patient/guardian the need to see the nurse specialist for further evaluation of the symptoms. I discussed with the patient/guardian the need to see the primary care provider for further evaluation of the symptoms. ED course: Will have patient follow-up primary care doctor. All labs and x-ray printed and given to patient take with her. Patient reports her pain is resolved and feeling much better. All questions answered. Strict ER precautions given.. 02/14 14: Order name: Basic Metabolic Panel; Complete Time: 14:53 02/14 14: Order name: CBC with Diff; Complete Time: 15:00 02/14 14:06 Order name: Troponin HS; Complete Time: 14:53 02/14 14:06 Order name: XRAY Chest (1 view); Complete Time: 14:53 02/14 14:06 Order name: EKG; Complete Time: 14:02/14 14:06 Order name: Cardiac monitoring; Complete Time: 14:02/14 14:06 Order name: EKG - Nurse/Tech; Complete Time: 14:02/14 14:06 Order name: IV Saline Lock; Complete Time: 14:02/14 14:06 Order name: Labs collected and sent; Complete Time: 14:15 dr5 02/14 14:06 Order name: O2 Per Protocol; Complete Time: : dr5 02/14 14:06 Order name: O2 Sat Monitoring; Complete Time: 14: dr5 EC:08 Rate is 60 beats/min. Rhythm is regular. QRS [place] is Normal. ME interval is normal at dr5 138 msec. QRS interval is normal at 82 msec. QT interval is normal at 402 msec. Clinical impression: Normal ECG and No evidence of ischemia. Administered Medications: 14:30 Drug: morphine IVP or IV 4 mg IVP once over 4 mins Route: IVP; Infused Over: 4 mins; bp Site: right antecubital; 17:03 Follow up: Response: No adverse reaction bp 14:30 Drug: Ondansetron IVP 4 mg IVP once; over 2 minutes Route: IVP; Site: right antecubital;bp 17:03 Follow up: Response: No adverse reaction bp 14:30 Drug: NS 0.9% IV 1000 ml IV at 1000 ml once; to be given as a bolus over 60 minutes bp Route: IV; Rate: 1000 ml; Site: right antecubital; 17:03 Follow up: IV Status: Completed infusion bp Disposition: 15:35 I was immediately available on-site in the Emergency Department for consultation in the ms3 care of the patient. Disposition Summary: 02/14/25 16:43 Discharge Ordered Notes: Location: Home dr5 Condition: Stable dr5 Diagnosis - Chest pain, unspecified dr5 Followup: dr5 - With: Emergency Department - When: As needed - Reason: Worsening of condition Followup: dr5 - With: Private Physician - When: 1 - 2 days - Reason: Recheck today's complaints, Continuance of care, Re-evaluation by your physician Discharge Instructions: - Discharge Summary Sheet dr5 - Nonspecific Chest Pain, Adult dr5 Forms: - Medication Reconciliation Form dr5 - Patient Portal Instructions dr5 - Leadership Thank You Letter dr5 Prescriptions: - Ibuprofen 800 mg Oral Tablet - take 1 tablet ORAL route every 12 hours As needed take with food; 20 tablet; dr5 Refills: 0, Product Selection Permitted Signatures: Dispatcher [employer] EDOleksandr Bryant RN RN bp Sal Figueroa DO DO ms3 Chel Crisostomo RN RN db ANNA, EVAN, RN RN dd2 Ely, Rohan, COMPUTATIONAL BIOLOGIST-C COMPUTATIONAL BIOLOGIST-Cdr5
[2025-02-14 17:35] VITALS: TEMP 98.2
[2025-02-14 17:39] VITALS: BP 103/67; O2SAT 99
== END 2025-02-14 17:03 | disposition home or self-care (01) ==
LOC: ER 13:55
DX: R07.9 Chest pain, unspecified (principal); R73.03 Prediabetes
CPT/HCPCS: 96361; 93005; 85025; 80048; 36415; 84484; 71045; 96375; 96374; 99285; J2405; J7030